=== PATIENT | female | born 1965 | race Caucasian/White ===

== ENCOUNTER → 2016-12-08 | Outpatient (CLI) | payer MEDICARE, OTHER ==
[~2016-12-08] MED LIST: CIPR200V4 IV; CLON1TAB PO; CYAN10002 IJ; ESTR0.5T3 PO; FAMO20TA5 PO; FLUC100T4 PO; FLUD0.1T PO; FLUO10CA13 PO; HYDR20TA PO; HYDR50TA PO; IRON1TAB2 PO; LEVALBUTER0.63 MG/3 IH; LEVO150T5 PO; MIRT15TA2 PO; MORP30TA PO; OXYC5CAP PO; PANT40TA3 PO; PHEN-318 PO; PRED15SO45 PO; PROP10TA PO; PROVENTIL HFA6.7 G1 IH; SUCR1TAB35 PO; TIZA4CAP3 PO; TRAM-48 PO
--- NOTE | 2016-12-08 09:58 | KCIC ---
EXAM: Lumbar spine MRI without contrast. HISTORY: Lumbar radiculopathy. TECHNIQUE: Multiplanar, multisequence magnetic resonance imaging of the lumbar spine was performed without contrast. COMPARISON: None. FINDINGS: There is lumbar dextroscoliosis centered at L2-L3. There is no significant listhesis. There is a right anterior superior endplate depression at L3 due to a large Schmorl's node. There is superimposed endplate remodeling with disc desiccation and decreased disc height at this level. The vertebral bodies are otherwise normal in height. There is diffusely heterogeneous marrow signal intensity. The conus terminates at L1. At L1-L2, there is no stenosis. At L2-L3, there is a disc bulge and endplate remodeling. There is no stenosis. At L3-L4, there is a disc bulge. There is no stenosis. At L4-L5, there is a disc bulge. There is minimal left facet arthropathy. There is no stenosis. At L5-S1, there is no stenosis. IMPRESSION: 1. Degenerative change within the lumbar spine, primarily at L2-L3. There is no associated significant foraminal or central canal stenosis. 2. Mild diffusely heterogeneous marrow signal intensity, likely due to heterogeneous fatty marrow replacement. Electronically signed by: Blessing eRyes MD (12/08/2016 9:55 AM) [facility]
== END | disposition home or self-care (01) ==
LOC: KCIC MRI 08:30
PROVIDERS: ATTEND Nurse Practitioner Family
DX: M51.16 Intervertebral disc disorders with radiculopathy, lumbar region (principal)
CPT/HCPCS: 72148

== ENCOUNTER 2019-01-21 11:30 | Inpatient (IN) | payer MEDICARE, OTHER ==
[~2019-01-21] VITALS: Ht 157.5 cm; Wt 43.2 kg
[~2019-01-21 11:30] MED LIST changes: +BENZ-8 PO; +BENZ1LOZ48 PO; +LEVO500T59 PO; -PANT40TA3 PO; +PANT40TA77 PO; +PRED15SO24 PO; -PRED15SO45 PO
[2019-01-21 17:00] VITALS: BP 138/78
[2019-01-21] MEDS ORDERED: IV NORMAL SALINE 1000ML BAG 1,000 ML IV ONE (18:15)
[2019-01-21] MEDS ORDERED: BENZOCAINE/MENTHOL LOZENGE. PO PRN (18:15)
[2019-01-21] MEDS ORDERED: MORPHINE IR 15 MG TABLET PO PRN (18:15)
[2019-01-21] MEDS ORDERED: SUCRALFATE 1 GM TABLET. PO PRN (18:15)
[2019-01-21] MEDS ORDERED: BENZONATATE 100 MG CAPSULE. PO PRN (18:15)
[2019-01-21] MEDS ORDERED: oxyCODONE/APAP 5/325 1 TAB TABLET PO PRN (18:15)
[2019-01-21 19:00] VITALS: BP 116/81
[2019-01-21] MEDS: hydrOXYzine 25 MG TABLET PO SCH ×2 (19:09→21:00)
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
[2019-01-21] MEDS: clonazePAM 0.5 MG TABLET PO SCH (21:00)
[2019-01-21] MEDS: FAMOTIDINE 20 MG TABLET. PO SCH (21:10)
[2019-01-21] MEDS: PHENAZOPYRIDINE 200 MG TABLET. PO SCH (21:11)
[2019-01-21] MEDS: MIRTAZAPINE 15 MG TABLET PO SCH (21:11)
[2019-01-21] MEDS: MORPHINE SULFATE 4 MG/ML VIAL. IV PRN (22:52)
[2019-01-21 23:00] VITALS: BP 122/70
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
[2019-01-22] VITALS (11 sets, daily range): BP systolic 96–126; BP diastolic 58–78
[2019-01-22] MEDS: MORPHINE SULFATE 4 MG/ML VIAL. IV PRN ×5 (02:26→22:11)
[2019-01-22] MEDS ORDERED: MORPHINE SULFATE 2 MG/ML VIAL. IV PRN ×2 (07:00→15:00)
[2019-01-22] MEDS ORDERED: PROCHLORPERAZINE 10 MG/2 ML VIAL. IV PRN ×2 (07:00→15:00)
[2019-01-22] MEDS ORDERED: LIDOCAINE 1% PF 2 ML VIAL. ID PRN ×2 (07:00→15:00)
[2019-01-22] MEDS ORDERED: HYDROmorphone 2 MG/ML VIAL IV PRN ×2 (07:00→15:00)
[2019-01-22] MEDS ORDERED: IV RINGERS,LACTATED 1000ML 1,000 ML IV SCH ×2 (07:00→14:54)
[2019-01-22] MEDS: LEVOTHYROXINE 150 MCG TABLET PO SCH (07:30)
[2019-01-22] MEDS: clonazePAM 0.5 MG TABLET PO SCH ×3 (09:00→22:10)
[2019-01-22] MEDS: hydrOXYzine 25 MG TABLET PO SCH ×3 (09:00→22:10)
[2019-01-22] MEDS: PROPRANOLOL 10 MG TABLET. PO SCH (09:00)
[2019-01-22] MEDS: PANTOPRAZOLE 40 MG TABLET.DR. PO SCH (09:00)
[2019-01-22] MEDS: PHENAZOPYRIDINE 200 MG TABLET. PO SCH ×3 (09:00→22:09)
[2019-01-22] MEDS: FLUoxetine HCL 10 MG CAPSULE PO SCH (09:00)
[2019-01-22] MEDS: FLUDROCORTISONE 0.1 MG TABLET PO SCH (09:00)
[2019-01-22] MEDS: HYDROCORTISONE SOD SUCC/PF 100 MG/2 ML VIAL. IV SCH ×3 (09:30→22:10)
--- NOTE | 2019-01-22 09:37 | PDOC ---
[facility] PROGRESS NOTE Chief Complaint Chief Complaint Right hip fracture History of Present Illness History of Present Illness 01/22/19 Pt seen and examined at bedside Pt was in distress complaining of hip pain and asking what time her surgery would be Pt has a RLQ ostomy bag D/w RN Vitals/I&O Vitals/I&O: Vital Signs Date Time Temp Pulse Resp B/P (MAP) Pulse Ox O2 Delivery O2 Flow Rate FiO2 01/22/19 09:30 Room Air 01/22/19 07:00 98.2 59 14 126/78 (94) 96 98.2 I & O 01/21/19 01/21/19 01/22/19 15:00 23:00 07:00 Output Total 610 ml Balance -610 ml Physical Exam General: Alert, Oriented X3, Cooperative, moderate distress Heart: Regular rate, Normal S1, Normal S2 Lungs: Clear Abdomen: Other (thin, ostomyu) Extremities: No cyanosis, Normal pulses Skin: No rashes, No significant lesion Review of Systems Review of Systems: Pt denies headache Pt denies chest pain Assessment and Plan Assessmemt and Plan Problems Medical Problems: (1) Madison disease Status: Chronic (2) Crohn disease Status: Chronic (3) Fracture of femoral neck, right Status: Acute Assessment Fracture of Right femoral neck Madison's disease Crohn disease Plan Awaiting surgery approval Morphine prn for pain IV hydrocortisone 100mg q8hrs DVT prophylaxis Full code Home meds Comment Review of Relevant I have reviewed the following items fausto (where applicable) has been applied. Medications: Current Medications Medications (Trade) Dose Ordered Sig/Rissa Route PRN Reason Start Time Stop Time Status Last Admin Dose Admin Morphine Sulfate (Morphine Ir) 15 mg PRN Q4HRS PRN PO PAIN 01/21/19 18:15 01/21/19 19:10 Sodium Chloride 1,000 ml @ 75 mls/hr 1X ONCE IV 01/21/19 18:15 01/22/19 07:34 DC 01/21/19 20:00 Famotidine (Pepcid) 20 mg HS PO 01/21/19 21:00 01/21/19 21:11 Phenazopyridine HCl (Pyridium) 200 mg TID PO 01/21/19 21:00 01/21/19 21:11 Hydroxyzine HCl (Atarax) 50 mg TID PO 01/21/19 18:30 01/21/19 19:10 Mirtazapine (Remeron) 15 mg QHS PO 01/21/19 21:00 01/21/19 21:11 Morphine Sulfate (Morphine Sulfate) 4 mg PRN Q2HR PRN IV PAIN 01/21/19 20:00 01/22/19 08:12 Hydrocortisone Sodium Succinate (Solu-CORTEF) 100 mg Q8HRS IV 01/22/19 08:30 01/22/19 09:30 MILA DUCKWORTH III DO Jan 22, 2019 09:36
[2019-01-22] MEDS ORDERED: PROPOFOL 20 ML IV ONE (11:34)
[2019-01-22] MEDS ORDERED: FAMOTIDINE 20 MG/2 ML VIAL ONE (11:34)
[2019-01-22] MEDS ORDERED: LIDOCAINE 2% PF 5 ML VIAL. ONE (11:34)
[2019-01-22] MEDS ORDERED: DEXAMETHASONE SOD PHOS 20 MG/5 ML VIAL. ONE (11:34)
[2019-01-22] MEDS ORDERED: ONDANSETRON PF 4 MG/2 ML VIAL. ONE (11:34)
[2019-01-22] MEDS ORDERED: fentaNYL PF VIAL 100 MCG/2 ML VIAL ONE ×2 (11:36→14:44)
[2019-01-22] MEDS ORDERED: MIDAZOLAM HCL/PF 2 MG/2 ML VIAL. ONE (11:36)
[2019-01-22] MEDS ORDERED: ROCURONIUM 50 MG/5 ML VIAL. ONE (11:36)
[2019-01-22] MEDS ORDERED: HYDROCORTISONE SOD SUCC/PF 100 MG/2 ML VIAL. ONE (11:38)
[2019-01-22] MEDS ORDERED: SEVOFLURANE > 120 MINUTES. IH ONE (12:59)
--- NOTE | 2019-01-22 13:13 | NUR ---
SS following for discharge planning. SS reviewed pt chart. Pt is from home and is currently on room air. No discharge needs noted at this time. SS will continue to follow for discharge planning.
[2019-01-22] MEDS ORDERED: ceFAZolin SODIUM 1 GM VIAL ONE (13:27)
[2019-01-22] MEDS ORDERED: 0.9 % SODIUM CHLORIDE 20 ML VIAL. IJ ONE (13:27)
[2019-01-22] MEDS ORDERED: ePHEDrine PF IN SALINE 50 MG/10 ML SYRINGE. IV ONE (13:51)
[2019-01-22] MEDS ORDERED: NEOSTIGMINE METHYLSULFATE 5 MG/5 ML SYRINGE. ONE (13:52)
[2019-01-22] MEDS ORDERED: GLYCOPYRROLATE 1 MG/5 ML VIAL. ONE (13:52)
[2019-01-22] MEDS ORDERED: IV DEXTROSE 5% 250 ML BAG. IV PRN (14:30)
[2019-01-22] MEDS ORDERED: fentaNYL PF VIAL 100 MCG/2 ML VIAL IV PRN ×2 (14:30→15:00)
[2019-01-22] MEDS ORDERED: DEXTROSE 50% 25 GM / 50ML DISP.SYRIN. IV PRN (14:30)
[2019-01-22] MEDS: fentaNYL PF VIAL 100 MCG/2 ML VIAL IV PRN ×2 (14:30→15:00)
[2019-01-22] MEDS ORDERED: MORPHINE SULFATE 4 MG/ML VIAL. IV PRN (14:30)
[2019-01-22] MEDS ORDERED: POLYETHYLENE GLYCOL 3350 17 GM PACKET. PO PRN (14:30)
[2019-01-22] MEDS ORDERED: ONDANSETRON PF 4 MG/2 ML VIAL. IV PRN ×2 (14:30→15:00)
[2019-01-22] MEDS ORDERED: HYDROcodone/APAP 7.5/325MG 1 TAB TABLET PO PRN (14:30)
[2019-01-22 15:42] LABS: PROTHROMBIN TIME PATIENT 12.7 SEC (11.7-14.0)
[2019-01-22] MEDS ORDERED: WARFARIN 5 MG TABLET. PO ONE (16:00)
--- NOTE | 2019-01-22 17:19 | PDOC4 ---
Operative Note Operative Note Date of surgery: 01/22/2019 Preoperative diagnosis: Displaced right femoral neck fracture Postoperative diagnosis: Same Operative procedure: Right hip hemiarthroplasty Surgeon: Tyrese Assist: Arian Echeverria Anesthesia: Gen. Estimated blood loss: 125 mL Complications: None Specimens: Femoral head to pathology Operative indications: Please see my dictated orthopedic consultation for detailed operative indications Operative text: Patient was identified procedure verified patient placed in the supine position on the operating table. After adequate amounts of general anesthesia were administered she was placed decubitus position right side up using the Stulberg hip positioner. The right hip was then prepped and draped in standard sterile fashion. After timeout was performed patient procedure identified and verified a standard posterior approach was carried out to the right hip with a curvilinear incision centered over the greater trochanter moriah otibial band and gluteal fascia were split in line with their fibers Charnley retractor was placed external rotators were divided from their insertion hip capsule was split in a T fashion femoral head was removed and sized at a size 45 femoral neck cut was made with the cutting guide and reaming and broaching carried out up to a size 10 broach which was trial fit with a +0 45 mm outside diameter trial which reproduced leg lengths and offset and noted excellent stability full range of motion. Trial components removed thorough irrigation carried out normal saline solution and a size 10 standard offset synergy porous femoral component was impacted into place in proper version and a bipolar construct was assembled with a +0 28 mm cobalt chromium femoral head and a 45 mm outside diameter cobalt chromium liner which was reduced and again showed excellent stability and leg length offset compared to the trial construct. Hip capsule was repaired with #5 Ethibond suture and transosseous repair of the external rotators was carried out with #5 Ethibond. Fascia closure was likewise carried out with Ethibond suture and reinforced with #1 PDS strata fix subcutaneous closure with buried Vicryl suture and subcuticular 3-0 Monocryl strata fix suture jenna dressing with Acticoat was placed patient was returned recovery room in stable condition having tolerated procedure well. VIJI MONTGOMERY MD Jan 22, 2019 17:19
[2019-01-22] MEDS: FAMOTIDINE 20 MG TABLET. PO SCH (22:09)
[2019-01-22] MEDS: MIRTAZAPINE 15 MG TABLET PO SCH (22:10)
[2019-01-22] MEDS: ceFAZolin SODIUM IV Push 1 GM VIAL. IVP SCH (22:26)
[2019-01-23 03:00] VITALS: BP 117/61
[2019-01-23] MEDS: MORPHINE SULFATE 2 MG/ML VIAL. IV PRN ×5 (03:51→19:30)
[2019-01-23] MEDS: ceFAZolin SODIUM IV Push 1 GM VIAL. IVP SCH ×2 (03:52→08:22)
[2019-01-23 04:58] LABS: HEMATOCRIT 22.7 % (36.0-47.0); HEMOGLOBIN 7.7 g/dL (12.0-15.5)
[2019-01-23] MEDS ORDERED: MAGNESIUM HYDROXIDE 2,400 MG/30 ML ORAL.SUSP. PO PRN (06:00)
[2019-01-23] MEDS: tiZANidine 4 MG TABLET. PO PRN (06:04)
[2019-01-23] MEDS: HYDROCORTISONE SOD SUCC/PF 100 MG/2 ML VIAL. IV SCH ×3 (06:04→22:00)
[2019-01-23] MEDS: LEVOTHYROXINE 150 MCG TABLET PO SCH (06:04)
[2019-01-23 07:15] VITALS: BP 126/69
--- NOTE | 2019-01-23 08:03 | PDOC ---
ORTHO PROGRESS NOTES Subjective Patient painful this morning but otherwise dong well. Post-op Day: 1 Procedure Right Hip Hemiarthroplasty Vitals Vital Signs Date Time Temp Pulse Resp B/P (MAP) Pulse Ox O2 Delivery O2 Flow Rate FiO2 01/23/19 07:15 98.3 62 16 126/69 (88) 96 Room Air 98.3 01/23/19 03:00 10.0 Labs Laboratory Tests Test 01/21/19 20:00 01/22/19 15:27 01/23/19 03:35 Nasal Screen MRSA (PCR) Negative (Negative) Prothrombin Time 12.7 SEC (11.7-14.0) Prothromb Time International Ratio 1.0 (0.8-1.1) Hemoglobin 7.7 g/dL (12.0-15.5) Hematocrit 22.7 % (36.0-47.0) Mean Corpuscular Hemoglobin Concent 34 g/dL (31-37) Laboratory Tests Test 01/22/19 15:27 01/23/19 03:35 Prothrombin Time 12.7 SEC (11.7-14.0) Prothromb Time International Ratio 1.0 (0.8-1.1) Hemoglobin 7.7 g/dL (12.0-15.5) Hematocrit 22.7 % (36.0-47.0) Mean Corpuscular Hemoglobin Concent 34 g/dL (31-37) Notes awake and alert Assessment and Plan POD # 1 R Hip Hemiarthroplasty motor and sensation intact distally calf soft and nontender moving foot,ankle and knee without restriction PT today KATHIE SHELTON APRN Jan 23, 2019 08:03
[2019-01-23] MEDS ORDERED: ZOLPIDEM 5 MG TABLET. PO PRN (09:00)
[2019-01-23 09:22] LABS: CALCIUM 8.7 mg/dL (8.5-10.1); CREATININE 1.2 mg/dL (0.6-1.0); GFR 46.6; POTASSIUM 4.9 mmol/L (3.5-5.1)
[2019-01-23] MEDS: PHENAZOPYRIDINE 200 MG TABLET. PO SCH ×3 (10:00→21:59)
[2019-01-23] MEDS: SENNOSIDES/DOCUSATE 8.6/50MG TABLET. PO SCH (10:00)
[2019-01-23] MEDS: hydrOXYzine 25 MG TABLET PO SCH ×3 (10:00→21:58)
[2019-01-23] MEDS: PANTOPRAZOLE 40 MG TABLET.DR. PO SCH (10:00)
[2019-01-23] MEDS: FLUoxetine HCL 10 MG CAPSULE PO SCH (10:00)
[2019-01-23] MEDS: FLUDROCORTISONE 0.1 MG TABLET PO SCH (10:01)
[2019-01-23] MEDS: PROPRANOLOL 10 MG TABLET. PO SCH (10:02)
[2019-01-23] MEDS: clonazePAM 0.5 MG TABLET PO SCH ×3 (10:03→21:58)
[2019-01-23 10:46] VITALS: BP 116/61
[2019-01-23 11:43] LABS: PROTHROMBIN TIME PATIENT 14.1 SEC (11.7-14.0)
--- NOTE | 2019-01-23 12:10 | PDOC ---
PROGRESS NOTES Chief Complaint Chief Complaint Right hip fracture s/p sx (01/22) POD # 1 History of Present Illness History of Present Illness Dr Howell is examining her She is up in chair NO RN issues PLAn: Check vit D and BMP post op I think this was a scheduled OR? PT OT SW for dc plans pending PT eval Vitals Vitals Vital Signs Date Time Temp Pulse Resp B/P (MAP) Pulse Ox O2 Delivery O2 Flow Rate FiO2 01/23/19 10:46 98.1 61 18 116/61 (79) 100 Room Air 98.1 01/23/19 09:24 10.0 Physical Exam General: Alert, Oriented X3, Cooperative, moderate distress Heart: Regular rate, Normal S1, Normal S2 Lungs: Clear Abdomen: Other (thin, ostomyu) Extremities: No cyanosis, Normal pulses Skin: No rashes, No significant lesion Labs LABS Laboratory Tests Test 01/22/19 15:27 01/23/19 03:35 01/23/19 11:01 Prothrombin Time 12.7 SEC (11.7-14.0) 14.1 SEC (11.7-14.0) Prothromb Time International Ratio 1.0 (0.8-1.1) 1.1 (0.8-1.1) Hemoglobin 7.7 g/dL (12.0-15.5) Hematocrit 22.7 % (36.0-47.0) Mean Corpuscular Hemoglobin Concent 34 g/dL (31-37) Sodium Level 139 mmol/L (136-145) Potassium Level 4.9 mmol/L (3.5-5.1) Chloride Level 105 mmol/L (98-107) Carbon Dioxide Level 28 mmol/L (21-32) Anion Gap 6 (6-14) Blood Urea Nitrogen 16 mg/dL (7-20) Creatinine 1.2 mg/dL (0.6-1.0) Estimated GFR (Cockcroft-Gault) 46.6 Glucose Level 151 mg/dL (70-99) Calcium Level 8.7 mg/dL (8.5-10.1) 25-Hydroxy Vitamin D Total 42.0 ng/mL (30-100) Review of Systems Review of Systems post op pain , all else 14 pt negative Assessment and Plan Assessmemt and Plan Problems Medical Problems: (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 Labs Laboratory Tests Test 01/21/19 20:00 01/22/19 15:27 01/23/19 03:35 01/23/19 11:01 Nasal Screen MRSA (PCR) Negative (Negative) Prothrombin Time 12.7 SEC (11.7-14.0) 14.1 SEC (11.7-14.0) Prothromb Time International Ratio 1.0 (0.8-1.1) 1.1 (0.8-1.1) Hemoglobin 7.7 g/dL (12.0-15.5) Hematocrit 22.7 % (36.0-47.0) Mean Corpuscular Hemoglobin Concent 34 g/dL (31-37) Sodium Level 139 mmol/L (136-145) Potassium Level 4.9 mmol/L (3.5-5.1) Chloride Level 105 mmol/L (98-107) Carbon Dioxide Level 28 mmol/L (21-32) Anion Gap 6 (6-14) Blood Urea Nitrogen 16 mg/dL (7-20) Creatinine 1.2 mg/dL (0.6-1.0) Estimated GFR (Cockcroft-Gault) 46.6 Glucose Level 151 mg/dL (70-99) Calcium Level 8.7 mg/dL (8.5-10.1) 25-Hydroxy Vitamin D Total 42.0 ng/mL (30-100) Laboratory Tests Test 01/22/19 15:27 01/23/19 03:35 01/23/19 11:01 Prothrombin Time 12.7 SEC (11.7-14.0) 14.1 SEC (11.7-14.0) Prothromb Time International Ratio 1.0 (0.8-1.1) 1.1 (0.8-1.1) Hemoglobin 7.7 g/dL (12.0-15.5) Hematocrit 22.7 % (36.0-47.0) Mean Corpuscular Hemoglobin Concent 34 g/dL (31-37) Sodium Level 139 mmol/L (136-145) Potassium Level 4.9 mmol/L (3.5-5.1) Chloride Level 105 mmol/L (98-107) Carbon Dioxide Level 28 mmol/L (21-32) Anion Gap 6 (6-14) Blood Urea Nitrogen 16 mg/dL (7-20) Creatinine 1.2 mg/dL (0.6-1.0) Estimated GFR (Cockcroft-Gault) 46.6 Glucose Level 151 mg/dL (70-99) Calcium Level 8.7 mg/dL (8.5-10.1) 25-Hydroxy Vitamin D Total 42.0 ng/mL (30-100) Medications Current Medications Morphine Sulfate (Morphine Sulfate) 1 mg PRN Q10MIN PRN IV SEVERE PAIN 7-10; Start 01/22/19 at 07:00; Stop 01/23/19 at 06:59; Status DC Ringer's Solution 1,000 ml @ 30 mls/hr Q24H IV ; Start 01/22/19 at 07:00; Stop 01/22/19 at 18:59; Status DC Lidocaine HCl (Xylocaine-Mpf 1% 2ml Vial) 2 ml PRN 1X PRN ID PRIOR TO IV START; Start 01/22/19 at 07:00; Stop 01/23/19 at 06:59; Status DC Hydromorphone HCl (Dilaudid) 0.5 mg PRN Q10MIN PRN IV SEV PAIN, Second choice; Start 01/22/19 at 07:00; Stop 01/23/19 at 06:59; Status DC Prochlorperazine Edisylate (Compazine) 5 mg PACU PRN PRN IV NAUSEA, MRX1; Start 01/22/19 at 07:00; Stop 01/23/19 at 06:59; Status DC Oxycodone/ Acetaminophen (Percocet 5/325) 1 tab PRN Q4HRS PRN PO PAIN; Start 01/21/19 at 18:15; Stop 01/22/19 at 17:54; Status DC Morphine Sulfate (Morphine Ir) 15 mg PRN Q4HRS PRN PO SEVERE PAIN Last administered on 01/21/19at 19:10; Start 01/21/19 at 18:15 Sodium Chloride 1,000 ml @ 75 mls/hr 1X ONCE IV Last administered on 01/21/19at 20:00; Start 01/21/19 at 18:15; Stop 01/22/19 at 07:34; Status DC Throat Lozenges (Cepacol Sore Throat Lozenge) 1 isai PRN Q2HRS PRN PO SORE THROAT; Start 01/21/19 at 18:15 Benzonatate (Tessalon Perle) 100 mg PRN TID PRN PO COUGH; Start 01/21/19 at 18:15 Famotidine (Pepcid) 20 mg HS PO Last administered on 01/22/19 22:26; Start 01/21/19 at 21:00 Fludrocortisone Acetate (Florinef) 0.1 mg DAILY PO Last administered on 01/23/19 10:03; Start 01/22/19 at 09:00 Fluoxetine HCl (PROzac) 10 mg DAILY PO Last administered on 01/23/19 10:03; Start 01/22/19 at 09:00 Levothyroxine Sodium (Synthroid) 150 mcg DAILYAC PO Last administered on 01/23/19 06:08; Start 01/22/19 at 07:30 Pantoprazole Sodium (Protonix) 40 mg DAILY PO Last administered on 01/23/19 10:03; Start 01/22/19 at 09:00 Phenazopyridine HCl (Pyridium) 200 mg TID PO Last administered on 01/23/19 10:03; Start 01/21/19 at 21:00 Propranolol HCl (Inderal) 10 mg DAILY PO Last administered on 01/23/19 10:03; Start 01/22/19 at 09:00 Sucralfate (Carafate) 1 gm PRN Q8HRS PRN PO abdominal pain; Start 01/21/19 at 18:15 Clonazepam (KlonoPIN) 1 mg TID PO Last administered on 01/23/19 10:03; Start 01/21/19 at 21:00 Hydroxyzine HCl (Atarax) 50 mg TID PO Last administered on 01/23/19 10:03; Start 01/21/19 at 18:30 Mirtazapine (Remeron) 15 mg QHS PO Last administered on 01/22/19 22:26; Start 01/21/19 at 21:00 Tizanidine HCl (Zanaflex) 4 mg PRN Q8HRS PRN PO MUSCLE SPASMS Last administered on 9/25/19at 06:08; Start 01/21/19 at 18:30 Morphine Sulfate (Morphine Sulfate) 4 mg PRN Q2HR PRN IV PAIN Last administered on 01/22/19at 22:26; Start 01/21/19 at 20:00 Hydrocortisone Sodium Succinate (Solu-CORTEF) 100 mg Q8HRS IV Last administered on 01/23/19at 06:08; Start 01/22/19 at 08:30 Lidocaine HCl (Lidocaine Pf 2% Vial) 5 ml STK-MED ONCE .ROUTE ; Start 01/22/19 at 11:34; Stop 01/22/19 at 11:34; Status DC Propofol 20 ml @ As Directed STK-MED ONCE IV ; Start 01/22/19 at 11:34; Stop 01/22/19 at 11:34; Status DC Famotidine (Pepcid Vial) 20 mg STK-MED ONCE .ROUTE ; Start 01/22/19 at 11:34; Stop 01/22/19 at 11:34; Status DC Dexamethasone Sodium Phosphate (Decadron) 20 mg STK-MED ONCE .ROUTE ; Start 01/22/19 at 11:34; Stop 01/22/19 at 11:34; Status DC Ondansetron HCl (Zofran) 4 mg STK-MED ONCE .ROUTE ; Start 01/22/19 at 11:34; Stop 01/22/19 at 11:34; Status DC Fentanyl Citrate (Fentanyl 2ml Vial) 100 mcg STK-MED ONCE .ROUTE ; Start 01/22/19 at 11:36; Stop 01/22/19 at 11:37; Status DC Midazolam HCl (Versed) 2 mg STK-MED ONCE .ROUTE ; Start 01/22/19 at 11:36; Stop 01/22/19 at 11:37; Status DC Rocuronium [place] (Zemuron) 50 mg STK-MED ONCE .ROUTE ; Start 01/22/19 at 11:36; Stop 01/22/19 at 11:37; Status DC Hydrocortisone Sodium Succinate (Solu-CORTEF) 100 mg STK-MED ONCE .ROUTE ; Start 01/22/19 at 11:38; Stop 01/22/19 at 11:38; Status DC Sevoflurane (Ultane) 90 ml STK-MED ONCE IH ; Start 01/22/19 at 12:59; Stop 01/22/19 at 12:59; Status DC Cefazolin Sodium (Ancef) 1 gm STK-MED ONCE .ROUTE ; Start 01/22/19 at 13:27; Stop 01/22/19 at 13:27; Status DC Sodium Chloride (SODIUM CHLORIDE 20ml) 20 ml STK-MED ONCE IJ ; Start 01/22/19 at 13:27; Stop 01/22/19 at 13:27; Status DC Ephedrine Sulfate (ePHEDrine PF IN SALINE SYRINGE) 50 mg STK-MED ONCE IV ; Start 01/22/19 at 13:51; Stop 01/22/19 at 13:51; Status DC Glycopyrrolate (Robinul) 1 mg STK-MED ONCE .ROUTE ; Start 01/22/19 at 13:52; Stop 01/22/19 at 13:53; Status DC Neostigmine Methylsulfate (Neostigmine Methylsulfate) 5 mg STK-MED ONCE .ROUTE ; Start 01/22/19 at 13:52; Stop 01/22/19 at 13:53; Status DC Oxycodone HCl (Roxicodone) 5 mg PRN Q3HRS PRN PO PAIN MOD; Start 01/22/19 at 14:30 Morphine Sulfate (Morphine Sulfate) 2 mg PRN Q1HR PRN IV PAIN MILD 1ST CHOICE Last administered on 01/23/19at 07:55; Start 01/22/19 at 14:30 Fentanyl Citrate (Fentanyl 2ml Vial) 25 mcg PRN Q1HR PRN IV PAIN MILD 1ST CHOICE; Start 01/22/19 at 14:30 Senna/Docusate Sodium (Senna Plus) 1 tab DAILY PO Last administered on 01/23/19at 10:03; Start 01/23/19 at 09:00 Polyethylene Glycol (miraLAX PACKET) 17 gm PRN DAILY PRN PO CONSTIPATION; Start 01/22/19 at 14:30 Ondansetron HCl (Zofran) 4 mg PRN Q4HRS PRN IV NAUSEA/VOMITING; Start 01/22/19 at 14:30 Warfarin Sodium (Coumadin) 5 mg 1X ONCE PO Last administered on 01/22/19at 17:59; Start 01/22/19 at 16:00; Stop 01/22/19 at 16:01; Status DC Warfarin Sodium (Coumadin Per Pharmacy) 1 each PRN DAILY PRN MC SEE COMMENTS; Start 01/23/19 at 14:30 Magnesium Hydroxide (Milk Of Magnesia) 2,400 mg 1X PRN PRN PO CONSTIPATION; Start 01/23/19 at 06:00; Stop 01/24/19 at 05:59 Bisacodyl (Dulcolax Supp) 10 mg 1X PRN PRN [place] CONSTIPATION; Start 01/23/19 at 16:00; Stop 01/24/19 at 15:59 Acetaminophen/ Hydrocodone Bitart (Lortab 7.5/325) 1 tab PRN Q4HRS PRN PO PAIN; Start 01/22/19 at 14:30 Morphine Sulfate (Morphine Sulfate) 4 mg PRN Q2HR PRN IV PAIN MOD 1ST CHOICE; Start 01/22/19 at 14:30 Acetaminophen/ Hydrocodone Bitart (Lortab 7.5/325) 2 tab PRN Q4HRS PRN PO PAIN; Start 01/22/19 at 14:30 Dextrose (Dextrose 50%-Water Syringe) 12.5 gm PRN Q15MIN PRN IV SEE COMMENTS; Start 01/22/19 at 14:30 Dextrose 250 ml PRN Q15MIN PRN IV SEE COMMENTS; Start 01/22/19 at 14:30 Cefazolin Sodium (Ancef) 1 gm Q6H IVP Last administered on 01/23/19at 08:22; Start 01/22/19 at 19:30; Stop 01/23/19 at 07:31; Status DC Fentanyl Citrate (Fentanyl 2ml Vial) 100 mcg STK-MED ONCE .ROUTE ; Start 01/22/19 at 14:44; Stop 01/22/19 at 14:44; Status DC Ondansetron HCl (Zofran) 4 mg PRN Q6HRS PRN IV NAUSEA/VOMITING; Start 01/22/19 at 15:00; Stop 01/23/19 at 14:59 Fentanyl Citrate (Fentanyl 2ml Vial) 25 mcg PRN Q5MIN PRN IV MILD PAIN 1-3; Start 01/22/19 at 15:00; Stop 01/23/19 at 14:59 Fentanyl Citrate (Fentanyl 2ml Vial) 50 mcg PRN Q5MIN PRN IV MODERATE TO SEVERE PAIN Last administered on 01/22/19at 15:00; Start 01/22/19 at 15:00; Stop 01/23/19 at 14:59 Morphine Sulfate (Morphine Sulfate) 1 mg PRN Q10MIN PRN IV SEVERE PAIN 7-10; Start 01/22/19 at 15:00; Stop 01/23/19 at 14:59 Ringer's Solution 1,000 ml @ 30 mls/hr Q24H IV ; Start 01/22/19 at 14:54; Stop 01/23/19 at 02:53; Status DC Lidocaine HCl (Xylocaine-Mpf 1% 2ml Vial) 2 ml PRN 1X PRN ID PRIOR TO IV START; Start 01/22/19 at 15:00; Stop 01/23/19 at 14:59 Hydromorphone HCl (Dilaudid) 0.5 mg PRN Q10MIN PRN IV SEV PAIN, Second choice; Start 01/22/19 at 15:00; Stop 01/23/19 at 14:59 Prochlorperazine Edisylate (Compazine) 5 mg PACU PRN PRN IV NAUSEA, MRX1; Start 01/22/19 at 15:00; Stop 01/23/19 at 14:59 Zolpidem Tartrate (Ambien) 5 mg PRN QHS PRN PO INSOMNIA; Start 01/23/19 at 09:00 Active Scripts Active Benzonatate 100 Mg Capsule 100 Mg PO PRN TID PRN Cepacol Sore Throat Lozenge (Benzocaine/Menthol) 1 Each Lozenge 1 Isai PO PRN Q2HRS PRN Reported Ultram (Tramadol Hcl) 50 Mg Tablet 50 Mg PO Q6H PRN Zanaflex (Tizanidine Hcl) 4 Mg Capsule 4 Mg PO TID PRN Carafate (Sucralfate) 1 Gm Tablet 1 Gm PO Protonix (Pantoprazole Sodium) 40 Mg Tablet.dr 40 Mg PO DAILY Oxycodone Hcl 5 Mg Capsule Unknown Dose PO PRN Morphine Sulfate 30 Mg Tablet Unknown Dose PO Remeron (Mirtazapine) 15 Mg Tab.rapdis 15 Mg PO DAILY Levothyroxine Sodium 150 Mcg Tablet 150 Mcg PO DAILYAC Hydroxyzine Hcl 50 Mg Tablet 50 Mg PO TID Cortef (Hydrocortisone) 20 Mg Tablet 20 Mg PO Prozac (Fluoxetine Hcl) 10 Mg Capsule 10 Mg PO DAILY Fludrocortisone Acetate 0.1 Mg Tablet 0.1 Mg PO Ferralet 90 Dual-Iron Tablet (Iron, Carb & Gluc/Fa/B12/C/Dss) 1 Each Tablet Unknown Dose PO Cyanocobalamin Injection (Cyanocobalamin (Vitamin B-12)) 1,000 Mcg/1 Ml Vial 1,000 Mcg IJ Klonopin (Clonazepam) 1 Mg Tablet 1 Mg PO TID Vitals/I & O Vital Sign - Last 24 Hours 01/22/19 01/22/19 01/22/19 01/22/19 14:34 14:34 14:49 14:56 Temp 97.4 97.4 97.2 97.4 97.4 97.2 Pulse 69 77 86 Resp 15 15 15 B/P (MAP) 110/66 110/70 110/70 Pulse Ox 100 100 96 O2 Delivery Simple Mask Room Air Room Air Room Air O2 Flow Rate 10 01/22/19 01/22/19 01/22/19 01/22/19 14:56 15:00 15:39 15:54 Temp 97.9 97.9 Pulse 79 76 Resp 15 14 14 B/P (MAP) 110/58 (75) 100/64 (76) Pulse Ox 100 96 96 96 O2 Delivery Room Air Room Air Room Air Room Air O2 Flow Rate 10.0 10.0 01/22/19 01/22/19 01/22/19 01/22/19 16:09 16:24 16:39 16:54 Pulse 73 79 74 B/P (MAP) 112/64 (80) 109/69 (82) 115/67 (83) 96/62 (73) Pulse Ox 94 93 98 O2 Delivery Room Air Room Air Room Air 01/22/19 01/22/19 01/22/19 01/22/19 17:24 17:59 18:35 18:45 Pulse 73 76 B/P (MAP) 100/58 (72) 111/61 (78) Pulse Ox 97 95 O2 Delivery Room Air Room Air Room Air Room Air 01/22/19 01/22/19 01/22/19 01/23/19 20:00 22:26 23:00 01:16 Temp 98.6 98.6 Pulse 70 Resp 16 B/P (MAP) 98/70 (79) Pulse Ox 95 96 O2 Delivery Room Air Room Air Room Air Room Air O2 Flow Rate 10.0 01/23/19 01/23/19 01/23/19 01/23/19 03:00 03:52 04:22 07:15 Temp 98.4 98.3 98.4 98.3 Pulse 62 62 Resp 16 16 16 B/P (MAP) 117/61 (79) 126/69 (88) Pulse Ox 96 96 O2 Delivery Room Air Room Air Room Air Room Air O2 Flow Rate 10.0 01/23/19 01/23/19 01/23/19 01/23/19 07:55 08:00 09:24 10:03 Pulse 62 Resp 16 16 B/P (MAP) 126/69 Pulse Ox 96 O2 Delivery Room Air Room Air Room Air O2 Flow Rate 10.0 01/23/19 10:46 Temp 98.1 98.1 Pulse 61 Resp 18 B/P (MAP) 116/61 (79) Pulse Ox 100 O2 Delivery Room Air Intake and Output 01/22/19 01/22/19 01/23/19 15:00 23:00 07:00 Intake Total 400 ml Output Total 450 ml 200 ml 700 ml Balance -50 ml -200 ml -700 ml Nutrition Consultation Dietary Evaluation: Recommendations by RD: Increase Calorie Intake, Protein supplementation Comments: rec regular diet with ground meats, ensure tid Expected Outcomes/Goals: to meet > 75% est nutr needs Malnutrition Findings: Muscle Mass (Severe): Severe Depletion Body Fat Depletion (Non Severe: Mod to Severe Weight Status: Underweight BORIS AKHTAR MD Jan 23, 2019 12:09
[2019-01-23 15:00] VITALS: BP 133/48
[2019-01-23] MEDS ORDERED: BISACODYL 10 MG SUPP.RECT. PR PRN (16:00)
[2019-01-23] MEDS ORDERED: WARFARIN 5 MG TABLET. PO ONE (16:00)
[2019-01-23] MEDS: HYDROcodone/APAP 7.5/325MG 1 TAB TABLET PO PRN (16:49)
[2019-01-23 19:00] VITALS: BP 141/68
[2019-01-23] MEDS: FAMOTIDINE 20 MG TABLET. PO SCH (21:59)
[2019-01-23] MEDS: MIRTAZAPINE 15 MG TABLET PO SCH (21:59)
[2019-01-23] MEDS: oxyCODONE IR 5 MG TABLET PO PRN (21:59)
[2019-01-23 23:00] VITALS: BP 141/67
[2019-01-23] MEDS: MORPHINE SULFATE 4 MG/ML VIAL. IV PRN (23:37)
[2019-01-24 03:00] VITALS: BP 141/74
[2019-01-24] MEDS: MORPHINE SULFATE 4 MG/ML VIAL. IV PRN (03:32)
[2019-01-24] MEDS: oxyCODONE IR 5 MG TABLET PO PRN ×2 (06:04→20:41)
[2019-01-24] MEDS: LEVOTHYROXINE 150 MCG TABLET PO SCH (06:05)
[2019-01-24] MEDS: HYDROCORTISONE SOD SUCC/PF 100 MG/2 ML VIAL. IV SCH ×3 (06:05→22:35)
[2019-01-24 07:14] LABS: PROTHROMBIN TIME PATIENT 19.1 SEC (11.7-14.0)
[2019-01-24 07:15] VITALS: BP 152/54
[2019-01-24] MEDS: FLUDROCORTISONE 0.1 MG TABLET PO SCH (09:00)
--- NOTE | 2019-01-24 10:02 | NUR ---
Pharmacy Warfarin Dosing Note S:Pharmacy consulted to assist with anticoagulation therapy started 01/22/19 with target INR: 1.6 - 2.5 O:MIKE BONE is a 53 year old F with Hip Fracture LABS: Last INR: 1.6 Last HGB: 7.7 Last HCT: 22.7 Last PLT: Last dose of 5 mg given on 01/23/19 at 1600 Previous Regimen: Vitamin K given: N Drug Interaction Changes: Ongoing Drug Interactions: A:INR of 1.6 is within desired range. Target range for this patient is: 1.6 - 2.5 P: Warfarin dose: 3 mg Today at 1600 Bridge Therapy: Next INR due IN AM Pharmacy anticoagulation service will continue to follow. ZENAIDA TOMLINSON [facility], 01/24/19 [id number]
[2019-01-24 11:09] VITALS: BP 131/60
[2019-01-24] MEDS: MORPHINE SULFATE 2 MG/ML VIAL. IV PRN ×2 (12:02→15:47)
[2019-01-24] MEDS: clonazePAM 0.5 MG TABLET PO SCH ×3 (12:05→20:41)
[2019-01-24] MEDS: PHENAZOPYRIDINE 200 MG TABLET. PO SCH ×3 (12:06→20:41)
[2019-01-24] MEDS: PANTOPRAZOLE 40 MG TABLET.DR. PO SCH (12:06)
[2019-01-24] MEDS: PROPRANOLOL 10 MG TABLET. PO SCH (12:06)
[2019-01-24] MEDS: FLUoxetine HCL 10 MG CAPSULE PO SCH (12:06)
[2019-01-24] MEDS: SENNOSIDES/DOCUSATE 8.6/50MG TABLET. PO SCH (12:07)
[2019-01-24] MEDS: hydrOXYzine 25 MG TABLET PO SCH ×3 (12:07→20:41)
--- NOTE | 2019-01-24 12:31 | PDOC ---
PROGRESS NOTES Chief Complaint Chief Complaint Right hip fracture s/p sx (01/22) POD # 2 Ex smoker Trasinet hypoxic RF post anesthesia/sx UNderweight BMI 17 History of Present Illness History of Present Illness Vit D levels are normal She wants rehabilitation in [place] work on case Otherwise seems to be doing okay postop no O2, noted the 10 L needed post op, PACU She is on room air satting just great Plan: target DC to snu tomorrow Full code She does take oxygen when necessary at home-her M[facility]D. at [facility] can take care of this once she discharges back to home Vitals Vitals Vital Signs Date Time Temp Pulse Resp B/P (MAP) Pulse Ox O2 Delivery O2 Flow Rate FiO2 01/24/19 12:06 67 131/60 01/24/19 12:02 16 97 Room Air 01/24/19 11:09 98.1 98.1 01/23/19 16:15 10.0 Physical Exam General: Alert, Oriented X3, Cooperative, moderate distress Heart: Regular rate, Normal S1, Normal S2 Lungs: Clear Abdomen: Other (thin, ostomyu) Extremities: No cyanosis, Normal pulses Skin: No rashes, No significant lesion Labs LABS Laboratory Tests Test 01/24/19 06:00 Prothrombin Time 19.1 SEC (11.7-14.0) Prothromb Time International Ratio 1.6 (0.8-1.1) Review of Systems Review of Systems post op pain, the rest of ROS 14 point negative Assessment and Plan Assessmemt and Plan Problems Medical Problems: (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 Labs Laboratory Tests Test 01/22/19 15:27 01/23/19 03:35 01/23/19 11:01 01/24/19 06:00 Prothrombin Time 12.7 SEC (11.7-14.0) 14.1 SEC (11.7-14.0) 19.1 SEC (11.7-14.0) Prothromb Time International Ratio 1.0 (0.8-1.1) 1.1 (0.8-1.1) 1.6 (0.8-1.1) Hemoglobin 7.7 g/dL (12.0-15.5) Hematocrit 22.7 % (36.0-47.0) Mean Corpuscular Hemoglobin Concent 34 g/dL (31-37) Sodium Level 139 mmol/L (136-145) Potassium Level 4.9 mmol/L (3.5-5.1) Chloride Level 105 mmol/L (98-107) Carbon Dioxide Level 28 mmol/L (21-32) Anion Gap 6 (6-14) Blood Urea Nitrogen 16 mg/dL (7-20) Creatinine 1.2 mg/dL (0.6-1.0) Estimated GFR (Cockcroft-Gault) 46.6 Glucose Level 151 mg/dL (70-99) Calcium Level 8.7 mg/dL (8.5-10.1) 25-Hydroxy Vitamin D Total 42.0 ng/mL (30-100) Laboratory Tests Test 01/24/19 06:00 Prothrombin Time 19.1 SEC (11.7-14.0) Prothromb Time International Ratio 1.6 (0.8-1.1) Medications Current Medications Morphine Sulfate (Morphine Sulfate) 1 mg PRN Q10MIN PRN IV SEVERE PAIN 7-10; Start 01/22/19 at 07:00; Stop 01/23/19 at 06:59; Status DC Ringer's Solution 1,000 ml @ 30 mls/hr Q24H IV ; Start 01/22/19 at 07:00; Stop 01/22/19 at 18:59; Status DC Lidocaine HCl (Xylocaine-Mpf 1% 2ml Vial) 2 ml PRN 1X PRN ID PRIOR TO IV START; Start 01/22/19 at 07:00; Stop 01/23/19 at 06:59; Status DC Hydromorphone HCl (Dilaudid) 0.5 mg PRN Q10MIN PRN IV SEV PAIN, Second choice; Start 01/22/19 at 07:00; Stop 01/23/19 at 06:59; Status DC Prochlorperazine Edisylate (Compazine) 5 mg PACU PRN PRN IV NAUSEA, MRX1; Start 01/22/19 at 07:00; Stop 01/23/19 at 06:59; Status DC Oxycodone/ Acetaminophen (Percocet 5/325) 1 tab PRN Q4HRS PRN PO PAIN; Start 01/21/19 at 18:15; Stop 01/22/19 at 17:54; Status DC Morphine Sulfate (Morphine Ir) 15 mg PRN Q4HRS PRN PO SEVERE PAIN Last administered on 01/21/19at 19:10; Start 01/21/19 at 18:15 Sodium Chloride 1,000 ml @ 75 mls/hr 1X ONCE IV Last administered on 01/21/19at 20:00; Start 01/21/19 at 18:15; Stop 01/22/19 at 07:34; Status DC Throat Lozenges (Cepacol Sore Throat Lozenge) 1 isai PRN Q2HRS PRN PO SORE THROAT; Start 01/21/19 at 18:15 Benzonatate (Tessalon Perle) 100 mg PRN TID PRN PO COUGH; Start 01/21/19 at 18:15 Famotidine (Pepcid) 20 mg HS PO Last administered on 01/23/19at 21:59; Start 01/21/19 at 21:00 Fludrocortisone Acetate (Florinef) 0.1 mg DAILY PO Last administered on 01/23/19 10:03; Start 01/22/19 at 09:00 Fluoxetine HCl (PROzac) 10 mg DAILY PO Last administered on 01/24/19 12:06; Start 01/22/19 at 09:00 Levothyroxine Sodium (Synthroid) 150 mcg DAILYAC PO Last administered on 01/24/19 06:05; Start 01/22/19 at 07:30 Pantoprazole Sodium (Protonix) 40 mg DAILY PO Last administered on 01/24/19 12:06; Start 01/22/19 at 09:00 Phenazopyridine HCl (Pyridium) 200 mg TID PO Last administered on 01/24/19 12:06; Start 01/21/19 at 21:00 Propranolol HCl (Inderal) 10 mg DAILY PO Last administered on 01/24/19 12:06; Start 01/22/19 at 09:00 Sucralfate (Carafate) 1 gm PRN Q8HRS PRN PO abdominal pain; Start 01/21/19 at 18:15 Clonazepam (KlonoPIN) 1 mg TID PO Last administered on 9/26/19at 12:05; Start 01/21/19 at 21:00 Hydroxyzine HCl (Atarax) 50 mg TID PO Last administered on 01/24/19at 12:07; Start 01/21/19 at 18:30 Mirtazapine (Remeron) 15 mg QHS PO Last administered on 01/23/19at 21:59; Start 01/21/19 at 21:00 Tizanidine HCl (Zanaflex) 4 mg PRN Q8HRS PRN PO MUSCLE SPASMS Last administered on 01/23/19at 06:08; Start 01/21/19 at 18:30 Morphine Sulfate (Morphine Sulfate) 4 mg PRN Q2HR PRN IV PAIN Last administered on 01/24/19at 03:32; Start 01/21/19 at 20:00 Hydrocortisone Sodium Succinate (Solu-CORTEF) 100 mg Q8HRS IV Last administered on 01/24/19at 06:05; Start 01/22/19 at 08:30 Lidocaine HCl (Lidocaine Pf 2% Vial) 5 ml STK-MED ONCE .ROUTE ; Start 01/22/19 at 11:34; Stop 01/22/19 at 11:34; Status DC Propofol 20 ml @ As Directed STK-MED ONCE IV ; Start 01/22/19 at 11:34; Stop 01/22/19 at 11:34; Status DC Famotidine (Pepcid Vial) 20 mg STK-MED ONCE .ROUTE ; Start 01/22/19 at 11:34; Stop 01/22/19 at 11:34; Status DC Dexamethasone Sodium Phosphate (Decadron) 20 mg STK-MED ONCE .ROUTE ; Start 01/22/19 at 11:34; Stop 01/22/19 at 11:34; Status DC Ondansetron HCl (Zofran) 4 mg STK-MED ONCE .ROUTE ; Start 01/22/19 at 11:34; Stop 01/22/19 at 11:34; Status DC Fentanyl Citrate (Fentanyl 2ml Vial) 100 mcg STK-MED ONCE .ROUTE ; Start 01/22/19 at 11:36; Stop 01/22/19 at 11:37; Status DC Midazolam HCl (Versed) 2 mg STK-MED ONCE .ROUTE ; Start 01/22/19 at 11:36; Stop 01/22/19 at 11:37; Status DC Rocuronium Gaston (Zemuron) 50 mg STK-MED ONCE .ROUTE ; Start 01/22/19 at 11:36; Stop 01/22/19 at 11:37; Status DC Hydrocortisone Sodium Succinate (Solu-CORTEF) 100 mg STK-MED ONCE .ROUTE ; Start 01/22/19 at 11:38; Stop 01/22/19 at 11:38; Status DC Sevoflurane (Ultane) 90 ml STK-MED ONCE IH ; Start 01/22/19 at 12:59; Stop 01/22/19 at 12:59; Status DC Cefazolin Sodium (Ancef) 1 gm STK-MED ONCE .ROUTE ; Start 01/22/19 at 13:27; Stop 01/22/19 at 13:27; Status DC Sodium Chloride (SODIUM CHLORIDE 20ml) 20 ml STK-MED ONCE IJ ; Start 01/22/19 at 13:27; Stop 01/22/19 at 13:27; Status DC Ephedrine Sulfate (ePHEDrine PF IN SALINE SYRINGE) 50 mg STK-MED ONCE IV ; Start 01/22/19 at 13:51; Stop 01/22/19 at 13:51; Status DC Glycopyrrolate (Robinul) 1 mg STK-MED ONCE .ROUTE ; Start 01/22/19 at 13:52; Stop 01/22/19 at 13:53; Status DC Neostigmine Methylsulfate (Neostigmine Methylsulfate) 5 mg STK-MED ONCE .ROUTE ; Start 01/22/19 at 13:52; Stop 01/22/19 at 13:53; Status DC Oxycodone HCl (Roxicodone) 5 mg PRN Q3HRS PRN PO PAIN MOD Last administered on 01/24/19at 06:04; Start 01/22/19 at 14:30 Morphine Sulfate (Morphine Sulfate) 2 mg PRN Q1HR PRN IV PAIN MILD 1ST CHOICE Last administered on 01/24/19at 12:02; Start 01/22/19 at 14:30 Fentanyl Citrate (Fentanyl 2ml Vial) 25 mcg PRN Q1HR PRN IV PAIN MILD 1ST CHOICE; Start 01/22/19 at 14:30 Senna/Docusate Sodium (Senna Plus) 1 tab DAILY PO Last administered on 01/24/19at 12:07; Start 01/23/19 at 09:00 Polyethylene Glycol (miraLAX PACKET) 17 gm PRN DAILY PRN PO CONSTIPATION; Start 01/22/19 at 14:30 Ondansetron HCl (Zofran) 4 mg PRN Q4HRS PRN IV NAUSEA/VOMITING; Start 01/22/19 at 14:30 Warfarin Sodium (Coumadin) 5 mg 1X ONCE PO Last administered on 01/22/19at 17:59; Start 01/22/19 at 16:00; Stop 01/22/19 at 16:01; Status DC Warfarin Sodium (Coumadin Per Pharmacy) 1 each PRN DAILY PRN MC SEE COMMENTS Last administered on 01/24/19at 09:45; Start 01/23/19 at 14:30 Magnesium Hydroxide (Milk Of Magnesia) 2,400 mg 1X PRN PRN PO CONSTIPATION; Start 01/23/19 at 06:00; Stop 01/24/19 at 05:59; Status DC Bisacodyl (Dulcolax Supp) 10 mg 1X PRN PRN NE CONSTIPATION; Start 01/23/19 at 16:00; Stop 01/24/19 at 15:59 Acetaminophen/ Hydrocodone Bitart (Lortab 7.5/325) 1 tab PRN Q4HRS PRN PO PAIN; Start 01/22/19 at 14:30 Morphine Sulfate (Morphine Sulfate) 4 mg PRN Q2HR PRN IV PAIN MOD 1ST CHOICE; Start 01/22/19 at 14:30 Acetaminophen/ Hydrocodone Bitart (Lortab 7.5/325) 2 tab PRN Q4HRS PRN PO PAIN Last administered on 01/23/19at 16:49; Start 01/22/19 at 14:30 Dextrose (Dextrose 50%-Water Syringe) 12.5 gm PRN Q15MIN PRN IV SEE COMMENTS; Start 01/22/19 at 14:30 Dextrose 250 ml PRN Q15MIN PRN IV SEE COMMENTS; Start 01/22/19 at 14:30 Cefazolin Sodium (Ancef) 1 gm Q6H IVP Last administered on 01/23/19at 08:22; Start 01/22/19 at 19:30; Stop 01/23/19 at 07:31; Status DC Fentanyl Citrate (Fentanyl 2ml Vial) 100 mcg STK-MED ONCE .ROUTE ; Start 01/22/19 at 14:44; Stop 01/22/19 at 14:44; Status DC Ondansetron HCl (Zofran) 4 mg PRN Q6HRS PRN IV NAUSEA/VOMITING; Start 01/22/19 at 15:00; Stop 01/23/19 at 14:59; Status DC Fentanyl Citrate (Fentanyl 2ml Vial) 25 mcg PRN Q5MIN PRN IV MILD PAIN 1-3; Start 01/22/19 at 15:00; Stop 01/23/19 at 14:59; Status DC Fentanyl Citrate (Fentanyl 2ml Vial) 50 mcg PRN Q5MIN PRN IV MODERATE TO SEVERE PAIN Last administered on 01/22/19at 15:00; Start 01/22/19 at 15:00; Stop 01/23/19 at 14:59; Status DC Morphine Sulfate (Morphine Sulfate) 1 mg PRN Q10MIN PRN IV SEVERE PAIN 7-10; Start 01/22/19 at 15:00; Stop 01/23/19 at 14:59; Status DC Ringer's Solution 1,000 ml @ 30 mls/hr Q24H IV ; Start 01/22/19 at 14:54; Stop 01/23/19 at 02:53; Status DC Lidocaine HCl (Xylocaine-Mpf 1% 2ml Vial) 2 ml PRN 1X PRN ID PRIOR TO IV START; Start 01/22/19 at 15:00; Stop 01/23/19 at 14:59; Status DC Hydromorphone HCl (Dilaudid) 0.5 mg PRN Q10MIN PRN IV SEV PAIN, Second choice; Start 01/22/19 at 15:00; Stop 01/23/19 at 14:59; Status DC Prochlorperazine Edisylate (Compazine) 5 mg PACU PRN PRN IV NAUSEA, MRX1; Start 01/22/19 at 15:00; Stop 01/23/19 at 14:59; Status DC Zolpidem Tartrate (Ambien) 5 mg PRN QHS PRN PO INSOMNIA; Start 01/23/19 at 09:00 Warfarin Sodium (Coumadin) 5 mg 1X WARF ONCE PO Last administered on 01/23/19at 15:46; Start 01/23/19 at 16:00; Stop 01/23/19 at 16:01; Status DC Warfarin Sodium (Coumadin) 3 mg 1X WARF ONCE PO ; Start 01/24/19 at 16:00; Stop 01/24/19 at 16:01 Active Scripts Active Benzonatate 100 Mg Capsule 100 Mg PO PRN TID PRN Cepacol Sore Throat Lozenge (Benzocaine/Menthol) 1 Each Lozenge 1 Isai PO PRN Q2HRS PRN Reported Ultram (Tramadol Hcl) 50 Mg Tablet 50 Mg PO Q6H PRN Zanaflex (Tizanidine Hcl) 4 Mg Capsule 4 Mg PO TID PRN Carafate (Sucralfate) 1 Gm Tablet 1 Gm PO Protonix (Pantoprazole Sodium) 40 Mg Tablet.dr 40 Mg PO DAILY Oxycodone Hcl 5 Mg Capsule Unknown Dose PO PRN Morphine Sulfate 30 Mg Tablet Unknown Dose PO Remeron (Mirtazapine) 15 Mg Tab.rapdis 15 Mg PO DAILY Levothyroxine Sodium 150 Mcg Tablet 150 Mcg PO DAILYAC Hydroxyzine Hcl 50 Mg Tablet 50 Mg PO TID Cortef (Hydrocortisone) 20 Mg Tablet 20 Mg PO Prozac (Fluoxetine Hcl) 10 Mg Capsule 10 Mg PO DAILY Fludrocortisone Acetate 0.1 Mg Tablet 0.1 Mg PO Ferralet 90 Dual-Iron Tablet (Iron, Carb & Gluc/Fa/B12/C/Dss) 1 Each Tablet Unknown Dose PO Cyanocobalamin Injection (Cyanocobalamin (Vitamin B-12)) 1,000 Mcg/1 Ml Vial 1,000 Mcg IJ Klonopin (Clonazepam) 1 Mg Tablet 1 Mg PO TID Vitals/I & O Vital Sign - Last 24 Hours 01/23/19 01/23/19 01/23/19 01/23/19 12:54 15:00 15:45 16:15 Temp 98.3 98.3 Pulse 59 Resp 16 20 16 18 B/P (MAP) 133/48 (76) Pulse Ox 97 100 100 100 O2 Delivery Room Air Room Air Room Air Room Air O2 Flow Rate 10.0 10.0 01/23/19 01/23/19 01/23/19 01/23/19 16:49 17:49 19:00 19:30 Temp 98.1 98.1 Pulse 57 Resp 16 20 18 16 B/P (MAP) 141/68 (92) Pulse Ox 98 92 O2 Delivery Room Air Room Air Room Air Room Air 01/23/19 01/23/19 01/23/19 01/23/19 20:00 20:32 21:59 22:59 Resp 16 18 18 O2 Delivery Room Air Room Air Room Air Room Air 01/23/19 01/23/19 01/24/19 01/24/19 23:00 23:37 00:07 03:00 Temp 98.1 98.0 98.1 98.0 Pulse 55 54 Resp 18 16 18 B/P (MAP) 141/67 (91) 141/74 (96) Pulse Ox 96 96 O2 Delivery Room Air Room Air Room Air Room Air 01/24/19 01/24/19 01/24/19 01/24/19 03:32 04:02 06:04 07:04 Resp 14 18 O2 Delivery Room Air Room Air Room Air Room Air 01/24/19 01/24/19 01/24/19 01/24/19 07:15 11:09 12:02 12:06 Temp 98.7 98.1 98.7 98.1 Pulse 56 67 67 Resp 18 16 16 B/P (MAP) 152/54 (86) 131/60 (83) 131/60 Pulse Ox 95 97 97 O2 Delivery Room Air Room Air Room Air Intake and Output 01/23/19 01/23/19 01/24/19 15:00 23:00 07:00 Intake Total 420 ml 180 ml 220 ml Output Total 550 ml 950 ml Balance 420 ml -370 ml -730 ml Nutrition Consultation Dietary Evaluation: Recommendations by RD: Increase Calorie Intake, Protein supplementation Comments: rec regular diet with ground meats, ensure tid Expected Outcomes/Goals: to meet > 75% est nutr needs Malnutrition Findings: Muscle Mass (Severe): Severe Depletion Body Fat Depletion (Non Severe: Mod to Severe Weight Status: Underweight BORIS AKHTAR MD Jan 24, 2019 12:31
[2019-01-24] MEDS ORDERED: TRAM-48 PO (12:33)
[2019-01-24] MEDS ORDERED: PROP10TA PO (12:33)
[2019-01-24] MEDS ORDERED: CLON1TAB PO (12:33)
[2019-01-24] MEDS ORDERED: HYDR-2765 PO (12:33)
[2019-01-24] MEDS ORDERED: WARF2TAB96 PO (12:33)
--- NOTE | 2019-01-24 12:34 | SNU/HH DC ---
DISCHARGE ORDERS DISCHARGE INFORMATION: DISCHARGE DATE: Jan 25, 2019 FINAL DIAGNOSIS Problems Medical Problems: (1) Wili disease Status: Chronic (2) Crohn disease Status: Chronic (3) Fracture of femoral neck, right Status: Acute CONDITION ON DISCHARGE: Stable CODE STATUS: Code Status: Full SENIOR CARE: SNF STAY <30 DAYS: Yes HOSPICE: HOSPICE: No HOSPICE EVAL & TREAT: No LTAC: ADMIT TO LTAC: No POST DISCHARGE ORDERS: ACTIVITY ORDERS: Resume previous activity WEIGHT BEARING STATUS: No restrictions DIET AFTER DISCHARGE: Regular WOUND/INCISION CARE: Keep wound elevated, Change dressing CHECKS AFTER DISCHARGE: CHECKS AFTER DISCHARGE: Check blood press - daily, Check blood sugar, ac/hs FOLLOW-UP: PHYSICIAN FOLLOW-UP: ortho upon snu dc TREATMENT/EQUIPMENT ORDERS: ADAPTIVE EQUIPMENT NEEDED: Front wheeled walker RESPIRATORY EQUIPMENT NEEDED: Oxygen Physical Therapy For: Evalulation/Treatment Occupational Therapy For: Evaluation/Treatment DISCHARGE MEDICATIONS: Home Meds Active Scripts Warfarin Sodium (WARFARIN SODIUM) 2 Mg Tablet, 2 MG PO DAILY for post hip sx, #30 TAB Prov:BORIS AKHTAR MD 01/24/19 Hydrocodone Bit/Acetaminophen (HYDROCODONE-APAP 7.5-325 ) 1 Tab Tablet, 1 TAB PO PRN Q4HRS PRN for PAIN, #30 TAB Prov:BORIS AKHTAR MD 01/24/19 Propranolol Hcl (PROPRANOLOL HCL) 10 Mg Tablet, 10 MG PO DAILY for ETs, #60 TAB Prov:BORIS AKHTAR MD 01/24/19 Tramadol Hcl (ULTRAM) 50 Mg Tablet, 50 MG PO Q6H PRN for PAIN, #30 TAB 0 Refills Prov:BORIS AKHTAR MD 01/24/19 Clonazepam (KLONOPIN) 1 Mg Tablet, 1 MG PO TID for anxiety, #30 TAB Prov:BORIS AKHTAR MD 01/24/19 Benzonatate (BENZONATATE) 100 Mg Capsule, 100 MG PO PRN TID PRN for COUGH, #30 CAP Prov:QUE LONG MD 01/03/17 Benzocaine/Menthol (CEPACOL SORE THROAT LOZENGE) 1 Each Lozenge, 1 AUGIE PO PRN Q2HRS PRN for SORE THROAT, #30 LOZENGE Prov:QUE LONG MD 01/03/17 Reported Medications Tizanidine Hcl (ZANAFLEX) 4 Mg Capsule, 4 MG PO TID PRN for MUSCLE SPASMS, CAP 12/14/15 Sucralfate (CARAFATE) 1 Gm Tablet, 1 GM PO 12/14/15 Pantoprazole Sodium (PROTONIX ) 40 Mg Tablet.dr, 40 MG PO DAILY, TAB 12/14/15 Mirtazapine (REMERON) 15 Mg Tab.rapdis, 15 MG PO DAILY, TAB 12/14/15 Levothyroxine Sodium (LEVOTHYROXINE SODIUM) 150 Mcg Tablet, 150 MCG PO DAILYAC for THYROID SUPPLEMENT, #30 TAB 0 Refills 12/14/15 Hydroxyzine Hcl (HYDROXYZINE HCL) 50 Mg Tablet, 50 MG PO TID, TAB 12/14/15 Hydrocortisone (CORTEF) 20 Mg Tablet, 20 MG PO 12/14/15 Fluoxetine Hcl (PROZAC) 10 Mg Capsule, 10 MG PO DAILY, CAP 12/14/15 Fludrocortisone Acetate (FLUDROCORTISONE ACETATE) 0.1 Mg Tablet, 0.1 MG PO 12/14/15 Iron, Carb & Gluc/Fa/B12/C/Dss (FERRALET 90 DUAL-IRON TABLET) 1 Each Tablet, PO 12/14/15 Cyanocobalamin (Vitamin B-12) (CYANOCOBALAMIN INJECTION) 1,000 Mcg/1 Ml Vial, 1000 MCG IJ, VIAL 12/14/15 Discontinued Reported Medications Oxycodone Hcl (OXYCODONE HCL) 5 Mg Capsule, PO PRN for PAIN, TAB 0 Refills 12/14/15 Morphine Sulfate (MORPHINE SULFATE) 30 Mg Tablet, PO 12/14/15 Propranolol Hcl (PROPRANOLOL HCL) 10 Mg Tablet, 10 MG PO DAILY, TAB 12/14/15 Fluconazole (FLUCONAZOLE) 100 Mg Tablet, 100 MG PO DAILY, TAB 12/14/15 Albuterol Sulfate (Proventil Hfa) 6.7 Gm Hfa.aer.ad, 6.7 GM IH 12/14/15 BORIS AKHTAR MD Jan 24, 2019 12:34
--- NOTE | 2019-01-24 13:57 | NUR ---
SS following up with discharge planning. PT/OT recommended [facility]. SS met with pt to discuss discharge planning and [facility]. Pt reported that she had discussed earlier with physicians and would like referral to be phoned and faxed to [facility], ; fax [phone]. SS phoned and faxed referral. SS will continue to follow for discharge planning.
[2019-01-24] MEDS: HYDROcodone/APAP 7.5/325MG 1 TAB TABLET PO PRN (15:05)
--- NOTE | 2019-01-24 15:07 | PATHOLOGY ---
[facility] Accession Number: [id number] . 01 Material submitted: . hip - RIGHT HIP BONE AND TISSUE. Modifiers: right . 01 Clinical history: . Hip fracture . 02 Diagnosis: Femoral head, right hip hemiarthroplasty: - Focal fragmentation of bony trabeculae and recent intertrabecular hemorrhage consistent with fracture. (JPM:medical claims examiner; 01/24/2019) MBR 01/24/2019 1417 Local . 02 Comment: There is no evidence of malignancy. (JPM:medical claims examiner; 01/24/2019) . 02 Electronically signed: . Vignesh Becerra MD, Pathologist NPI- [id number] . 01 Gross description: . Received in formalin labeled "Rosa Maria Love, right hip bone and tissue," is a femoral head measuring 4.6 x 4.6 x 3.5 cm in greatest dimensions. The articular surface is smooth and pale winchester in appearance, with a small amount of granular, light brown texture surrounding the fovea capitis. The bone margin is jagged and hemorrhagic in appearance, grossly consistent with a fracture site. Serial sectioning reveals a pale yellow-winchester to red/hemorrhagic marrow space, with extensive dark brown hemorrhage noted at the bone margin. Residential Designer sections of the articular surface and bone margin are submitted in cassette A1, following decalcification. (DAC; 01/23/2019) XDC/XDC 01/23/2019 0703 Local . 02 Pathologist provided ICD-10: S72.091A . 02 CPT . 630206, 751106 Specimen Comment: A courtesy copy of this report has been sent to Specimen Comment: [phone]. Specimen Comment: Report sent to Performed at: [address] [place] [address] [address]vd [address], [place], [place] [id number] MD Eric Lopez MD Phone: [phone] Performed at: [address] [id number] MD Vignesh Becerra MD Phone: [phone]
[2019-01-24 15:08] VITALS: BP 132/68
[2019-01-24] MEDS ORDERED: WARFARIN 3 MG TABLET. PO ONE (16:00)
[2019-01-24 19:00] VITALS: BP 125/64
--- NOTE | 2019-01-24 19:06 | PDOC ---
PROGRESS NOTES Subjective Subjective Problems overnight: Hip is sore but feels much better than before operation Objective Vital Signs Vital Signs Date Time Temp Pulse Resp B/P (MAP) Pulse Ox O2 Delivery O2 Flow Rate FiO2 01/24/19 16:05 20 96 Room Air 01/24/19 15:08 98.2 56 132/68 (89) 98.2 01/23/19 16:15 10.0 Physical Exam Hip dressing clean dry intact leg lengths equal distal neurovascular status intact Labs Laboratory Tests Test 01/23/19 03:35 01/23/19 11:01 01/24/19 06:00 Hemoglobin 7.7 g/dL (12.0-15.5) Hematocrit 22.7 % (36.0-47.0) Mean Corpuscular Hemoglobin Concent 34 g/dL (31-37) Sodium Level 139 mmol/L (136-145) Potassium Level 4.9 mmol/L (3.5-5.1) Chloride Level 105 mmol/L (98-107) Carbon Dioxide Level 28 mmol/L (21-32) Anion Gap 6 (6-14) Blood Urea Nitrogen 16 mg/dL (7-20) Creatinine 1.2 mg/dL (0.6-1.0) Estimated GFR (Cockcroft-Gault) 46.6 Glucose Level 151 mg/dL (70-99) Calcium Level 8.7 mg/dL (8.5-10.1) 25-Hydroxy Vitamin D Total 42.0 ng/mL (30-100) Prothrombin Time 14.1 SEC (11.7-14.0) 19.1 SEC (11.7-14.0) Prothromb Time International Ratio 1.1 (0.8-1.1) 1.6 (0.8-1.1) Laboratory Tests Test 01/24/19 06:00 Prothrombin Time 19.1 SEC (11.7-14.0) Prothromb Time International Ratio 1.6 (0.8-1.1) Assessment Assessment POD# status post bipolar hemiarthroplasty for femoral neck fracture Plan Plan of Care weightbearing as tolerated standard total hip precautions Coumadin anticoagulation Appears stable from orthopedic standpoint VIJI MONTGOMERY MD Jan 24, 2019 19:06
[2019-01-24] MEDS: MIRTAZAPINE 15 MG TABLET PO SCH (20:40)
[2019-01-24] MEDS: tiZANidine 4 MG TABLET. PO PRN (20:40)
[2019-01-24] MEDS: FAMOTIDINE 20 MG TABLET. PO SCH (20:40)
[2019-01-24 23:00] VITALS: BP 123/66
[2019-01-25 02:56] VITALS: BP 136/70
[2019-01-25] MEDS: HYDROCORTISONE SOD SUCC/PF 100 MG/2 ML VIAL. IV SCH ×3 (06:14→22:05)
[2019-01-25] MEDS: LEVOTHYROXINE 150 MCG TABLET PO SCH (06:15)
[2019-01-25] MEDS: oxyCODONE IR 5 MG TABLET PO PRN ×3 (06:15→20:16)
[2019-01-25 07:00] VITALS: BP 114/75
--- NOTE | 2019-01-25 07:02 | NUR ---
Patient upset, crying during shift report stating, "I hurt! I was moaning all night but I was too scared to ask for anything". This nurse assured patient that she was sleeping during rounds but patient continued crying and responded, "No I wasn't! I'm going to tell my doctor". This nurse and ELSA Tim checked on patient hourly and patient was resting quietly as previously documented. Oxycodone IR administered prior to shift change but patient denies effectiveness, report given to ELSA Winters at this time.
[2019-01-25] MEDS: HYDROcodone/APAP 7.5/325MG 1 TAB TABLET PO PRN ×2 (07:20→17:26)
--- NOTE | 2019-01-25 08:05 | NUR ---
Pt. screaming and crying re: pain meds not working. Pt.educated on pain pills needing time to work. Pt's family member called the nurses station, stating pt called her stating she has not received pain meds. Family member infomed pt received pt received med prior to shift change report and after shift change report and that RN has just returned to the nurses station to address pt's concern re: pain meds and those concerns are in the process of being addressed. Pt. extremely anxious, more education needed re: pain med regimine.
[2019-01-25 08:37] LABS: PROTHROMBIN TIME PATIENT 24.2 SEC (11.7-14.0)
[2019-01-25] MEDS: hydrOXYzine 25 MG TABLET PO SCH ×3 (08:37→20:16)
[2019-01-25] MEDS: PHENAZOPYRIDINE 200 MG TABLET. PO SCH ×3 (08:38→20:16)
[2019-01-25] MEDS: FLUoxetine HCL 10 MG CAPSULE PO SCH (08:38)
[2019-01-25] MEDS: clonazePAM 0.5 MG TABLET PO SCH ×3 (08:38→20:15)
[2019-01-25] MEDS: SENNOSIDES/DOCUSATE 8.6/50MG TABLET. PO SCH (08:38)
[2019-01-25] MEDS: PANTOPRAZOLE 40 MG TABLET.DR. PO SCH (08:38)
[2019-01-25] MEDS: FLUDROCORTISONE 0.1 MG TABLET PO SCH (08:38)
[2019-01-25] MEDS: PROPRANOLOL 10 MG TABLET. PO SCH (08:38)
[2019-01-25] MEDS: MORPHINE SULFATE 2 MG/ML VIAL. IV PRN ×2 (10:13→21:57)
--- NOTE | 2019-01-25 10:14 | NUR ---
Pt.given IV Morphine, states she wants it for the" top pain to be gone", states she has been begging since 7 o'clock for it yesterday. pt. educated on relaxation technique. will continue to monitor.
--- NOTE | 2019-01-25 10:52 | NUR ---
Pharmacy Warfarin Dosing Note S:Pharmacy consulted to assist with anticoagulation therapy started 01/22/19 with target INR: 1.6 - 2.5 O:MIKE BONE is a 53 year old F with Hip Fracture LABS: Last INR: 2.2 Last HGB: 7.9 Last HCT: 22.7 Last PLT: Last dose of 3 mg given on 01/24/19 at 1548 Previous Regimen: Vitamin K given: N Drug Interaction Changes: Ongoing Drug Interactions: A:INR of 2.2 is within desired range. Target range for this patient is: 1.6 - 2.5. P: Warfarin dose: 1 mg Today at 1600. Bridge Therapy: None Next INR due tomorrow. Pharmacy anticoagulation service will continue to follow. Ruben Ty [facility], 01/25/19 [id number]
[2019-01-25 11:00] VITALS: BP 149/70
--- NOTE | 2019-01-25 11:22 | NUR ---
SS following up with discharge planning. Pt accepted at [facility]. Discharge orders received for [facility], ; fax [phone]. Discharge orders phoned and faxed to [facility]. [facility] reported that bed will be available tomorrow. Pt will discharge tomorrow, 01/26/2019, and go to [facility] at 1000. [facility] to provide transportation. Pt, pt's family, and pt's RN notified.
--- NOTE | 2019-01-25 12:41 | PDOC ---
PROGRESS NOTES Chief Complaint Chief Complaint Right hip fracture s/p sx (01/22) POD # 3 Ex smoker Transient hypoxic RF post anesthesia/sx UNderweight BMI 17 History of Present Illness History of Present Illness Vit D levels are normal She wants rehabilitation in [place] NO bed today Social work on case Otherwise seems to be doing okay postop Slated for Dining Secretary tomr 10 AM EARLIER ENTRY: no O2, noted the 10 L needed post op, PACU She is on room air satting just great Plan: target DC to [facility] tomorrow Full code She does take oxygen when necessary at home-her M.D. at [facility] can take care of this once she discharges back to home Vitals Vitals Vital Signs Date Time Temp Pulse Resp B/P (MAP) Pulse Ox O2 Delivery O2 Flow Rate FiO2 01/25/19 11:00 97.9 18 18 149/70 (96) 95 Room Air 97.9 Physical Exam General: Alert, Oriented X3, Cooperative, moderate distress Heart: Regular rate, Normal S1, Normal S2 Lungs: Clear Abdomen: Other (thin, ostomyu) Extremities: No cyanosis, Normal pulses Skin: No rashes, No significant lesion Labs LABS Laboratory Tests Test 01/25/19 07:55 Hemoglobin 7.9 g/dL (12.0-15.5) Prothrombin Time 24.2 SEC (11.7-14.0) Prothromb Time International Ratio 2.2 (0.8-1.1) Review of Systems Review of Systems neg 14 pt Assessment and Plan Assessmemt and Plan Problems Medical Problems: (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 Labs Laboratory Tests Test 01/24/19 06:00 01/25/19 07:55 Prothrombin Time 19.1 SEC (11.7-14.0) 24.2 SEC (11.7-14.0) Prothromb Time International Ratio 1.6 (0.8-1.1) 2.2 (0.8-1.1) Hemoglobin 7.9 g/dL (12.0-15.5) Laboratory Tests Test 01/25/19 07:55 Hemoglobin 7.9 g/dL (12.0-15.5) Prothrombin Time 24.2 SEC (11.7-14.0) Prothromb Time International Ratio 2.2 (0.8-1.1) Medications Current Medications Morphine Sulfate (Morphine Sulfate) 1 mg PRN Q10MIN PRN IV SEVERE PAIN 7-10; Start 01/22/19 at 07:00; Stop 01/23/19 at 06:59; Status DC Ringer's Solution 1,000 ml @ 30 mls/hr Q24H IV ; Start 01/22/19 at 07:00; Stop 01/22/19 at 18:59; Status DC Lidocaine HCl (Xylocaine-Mpf 1% 2ml Vial) 2 ml PRN 1X PRN ID PRIOR TO IV START; Start 01/22/19 at 07:00; Stop 01/23/19 at 06:59; Status DC Hydromorphone HCl (Dilaudid) 0.5 mg PRN Q10MIN PRN IV SEV PAIN, Second choice; Start 01/22/19 at 07:00; Stop 01/23/19 at 06:59; Status DC Prochlorperazine Edisylate (Compazine) 5 mg PACU PRN PRN IV NAUSEA, MRX1; Start 01/22/19 at 07:00; Stop 01/23/19 at 06:59; Status DC Oxycodone/ Acetaminophen (Percocet 5/325) 1 tab PRN Q4HRS PRN PO PAIN; Start 01/21/19 at 18:15; Stop 01/22/19 at 17:54; Status DC Morphine Sulfate (Morphine Ir) 15 mg PRN Q4HRS PRN PO SEVERE PAIN Last administered on 01/21/19at 19:10; Start 01/21/19 at 18:15 Sodium Chloride 1,000 ml @ 75 mls/hr 1X ONCE IV Last administered on 01/21/19at 20:00; Start 01/21/19 at 18:15; Stop 01/22/19 at 07:34; Status DC Throat Lozenges (Cepacol Sore Throat Lozenge) 1 isai PRN Q2HRS PRN PO SORE THROAT; Start 01/21/19 at 18:15 Benzonatate (Tessalon Perle) 100 mg PRN TID PRN PO COUGH; Start 01/21/19 at 18:15 Famotidine (Pepcid) 20 mg HS PO Last administered on 01/24/19 20:40; Start 01/21/19 at 21:00 Fludrocortisone Acetate (Florinef) 0.1 mg DAILY PO Last administered on 01/25/19 08:38; Start 01/22/19 at 09:00 Fluoxetine HCl (PROzac) 10 mg DAILY PO Last administered on 01/25/19 08:38; Start 01/22/19 at 09:00 Levothyroxine Sodium (Synthroid) 150 mcg DAILYAC PO Last administered on 01/25/19 06:15; Start 01/22/19 at 07:30 Pantoprazole Sodium (Protonix) 40 mg DAILY PO Last administered on 01/25/19 08:38; Start 01/22/19 at 09:00 Phenazopyridine HCl (Pyridium) 200 mg TID PO Last administered on 01/25/19 08:38; Start 01/21/19 at 21:00 Propranolol HCl (Inderal) 10 mg DAILY PO Last administered on 01/25/19 08:38; Start 01/22/19 at 09:00 Sucralfate (Carafate) 1 gm PRN Q8HRS PRN PO abdominal pain; Start 01/21/19 at 18:15 Clonazepam (KlonoPIN) 1 mg TID PO Last administered on 01/25/19 08:38; Start 01/21/19 at 21:00 Hydroxyzine HCl (Atarax) 50 mg TID PO Last administered on 01/25/19 08:37; Start 01/21/19 at 18:30 Mirtazapine (Remeron) 15 mg QHS PO Last administered on 01/24/19 20:40; Start 01/21/19 at 21:00 Tizanidine HCl (Zanaflex) 4 mg PRN Q8HRS PRN PO MUSCLE SPASMS Last administered on 01/24/19 20:40; Start 01/21/19 at 18:30 Morphine Sulfate (Morphine Sulfate) 4 mg PRN Q2HR PRN IV PAIN Last administered on 01/24/19 03:32; Start 01/21/19 at 20:00; Stop 01/24/19 at 18:34; Status DC Hydrocortisone Sodium Succinate (Solu-CORTEF) 100 mg Q8HRS IV Last administered on 01/25/19at 06:14; Start 01/22/19 at 08:30 Lidocaine HCl (Lidocaine Pf 2% Vial) 5 ml STK-MED ONCE .ROUTE ; Start 01/22/19 at 11:34; Stop 01/22/19 at 11:34; Status DC Propofol 20 ml @ As Directed STK-MED ONCE IV ; Start 01/22/19 at 11:34; Stop 01/22/19 at 11:34; Status DC Famotidine (Pepcid Vial) 20 mg STK-MED ONCE .ROUTE ; Start 01/22/19 at 11:34; Stop 01/22/19 at 11:34; Status DC Dexamethasone Sodium Phosphate (Decadron) 20 mg STK-MED ONCE .ROUTE ; Start 01/22/19 at 11:34; Stop 01/22/19 at 11:34; Status DC Ondansetron HCl (Zofran) 4 mg STK-MED ONCE .ROUTE ; Start 01/22/19 at 11:34; Stop 01/22/19 at 11:34; Status DC Fentanyl Citrate (Fentanyl 2ml Vial) 100 mcg STK-MED ONCE .ROUTE ; Start 01/22/19 at 11:36; Stop 01/22/19 at 11:37; Status DC Midazolam HCl (Versed) 2 mg STK-MED ONCE .ROUTE ; Start 01/22/19 at 11:36; Stop 01/22/19 at 11:37; Status DC Rocuronium [place] (Zemuron) 50 mg STK-MED ONCE .ROUTE ; Start 01/22/19 at 11:36; Stop 01/22/19 at 11:37; Status DC Hydrocortisone Sodium Succinate (Solu-CORTEF) 100 mg STK-MED ONCE .ROUTE ; Start 01/22/19 at 11:38; Stop 01/22/19 at 11:38; Status DC Sevoflurane (Ultane) 90 ml STK-MED ONCE IH ; Start 01/22/19 at 12:59; Stop 01/22/19 at 12:59; Status DC Cefazolin Sodium (Ancef) 1 gm STK-MED ONCE .ROUTE ; Start 01/22/19 at 13:27; Stop 01/22/19 at 13:27; Status DC Sodium Chloride (SODIUM CHLORIDE 20ml) 20 ml STK-MED ONCE IJ ; Start 01/22/19 at 13:27; Stop 01/22/19 at 13:27; Status DC Ephedrine Sulfate (ePHEDrine PF IN SALINE SYRINGE) 50 mg STK-MED ONCE IV ; Start 01/22/19 at 13:51; Stop 01/22/19 at 13:51; Status DC Glycopyrrolate (Robinul) 1 mg STK-MED ONCE .ROUTE ; Start 01/22/19 at 13:52; Stop 01/22/19 at 13:53; Status DC Neostigmine Methylsulfate (Neostigmine Methylsulfate) 5 mg STK-MED ONCE .ROUTE ; Start 01/22/19 at 13:52; Stop 01/22/19 at 13:53; Status DC Oxycodone HCl (Roxicodone) 5 mg PRN Q3HRS PRN PO PAIN MOD Last administered on 01/25/19at 06:15; Start 01/22/19 at 14:30 Morphine Sulfate (Morphine Sulfate) 2 mg PRN Q1HR PRN IV PAIN MILD 1ST CHOICE Last administered on 01/25/19at 10:13; Start 01/22/19 at 14:30 Fentanyl Citrate (Fentanyl 2ml Vial) 25 mcg PRN Q1HR PRN IV PAIN MILD 1ST CHO ICE; Start 01/22/19 at 14:30 Senna/Docusate Sodium (Senna Plus) 1 tab DAILY PO Last administered on 01/25/19at 08:38; Start 01/23/19 at 09:00 Polyethylene Glycol (miraLAX PACKET) 17 gm PRN DAILY PRN PO CONSTIPATION; Start 01/22/19 at 14:30 Ondansetron HCl (Zofran) 4 mg PRN Q4HRS PRN IV NAUSEA/VOMITING; Start 01/22/19 at 14:30 Warfarin Sodium (Coumadin) 5 mg 1X ONCE PO Last administered on 01/22/19at 17:59; Start 01/22/19 at 16:00; Stop 01/22/19 at 16:01; Status DC Warfarin Sodium (Coumadin Per Pharmacy) 1 each PRN DAILY PRN MC SEE COMMENTS Last administered on 01/25/19at 10:51; Start 01/23/19 at 14:30 Magnesium Hydroxide (Milk Of Magnesia) 2,400 mg 1X PRN PRN PO CONSTIPATION; Start 01/23/19 at 06:00; Stop 01/24/19 at 05:59; Status DC Bisacodyl (Dulcolax Supp) 10 mg 1X PRN PRN [place] CONSTIPATION; Start 01/23/19 at 16:00; Stop 01/24/19 at 15:59; Status DC Acetaminophen/ Hydrocodone Bitart (Lortab 7.5/325) 1 tab PRN Q4HRS PRN PO PAIN; Start 01/22/19 at 14:30 Morphine Sulfate (Morphine Sulfate) 4 mg PRN Q2HR PRN IV PAIN MOD 1ST CHOICE; Start 01/22/19 at 14:30 Acetaminophen/ Hydrocodone Bitart (Lortab 7.5/325) 2 tab PRN Q4HRS PRN PO PAIN Last administered on 01/25/19at 07:20; Start 01/22/19 at 14:30 Dextrose (Dextrose 50%-Water Syringe) 12.5 gm PRN Q15MIN PRN IV SEE COMMENTS; Start 01/22/19 at 14:30 Dextrose 250 ml PRN Q15MIN PRN IV SEE COMMENTS; Start 01/22/19 at 14:30 Cefazolin Sodium (Ancef) 1 gm Q6H IVP Last administered on 01/23/19at 08:22; Start 01/22/19 at 19:30; Stop 01/23/19 at 07:31; Status DC Fentanyl Citrate (Fentanyl 2ml Vial) 100 mcg STK-MED ONCE .ROUTE ; Start 01/22/19 at 14:44; Stop 01/22/19 at 14:44; Status DC Ondansetron HCl (Zofran) 4 mg PRN Q6HRS PRN IV NAUSEA/VOMITING; Start 01/22/19 at 15:00; Stop 01/23/19 at 14:59; Status DC Fentanyl Citrate (Fentanyl 2ml Vial) 25 mcg PRN Q5MIN PRN IV MILD PAIN 1-3; Start 01/22/19 at 15:00; Stop 01/23/19 at 14:59; Status DC Fentanyl Citrate (Fentanyl 2ml Vial) 50 mcg PRN Q5MIN PRN IV MODERATE TO SEVERE PAIN Last administered on 01/22/19at 15:00; Start 01/22/19 at 15:00; Stop 01/23/19 at 14:59; Status DC Morphine Sulfate (Morphine Sulfate) 1 mg PRN Q10MIN PRN IV SEVERE PAIN 7-10; Start 01/22/19 at 15:00; Stop 01/23/19 at 14:59; Status DC Ringer's Solution 1,000 ml @ 30 mls/hr Q24H IV ; Start 01/22/19 at 14:54; Stop 01/23/19 at 02:53; Status DC Lidocaine HCl (Xylocaine-Mpf 1% 2ml Vial) 2 ml PRN 1X PRN ID PRIOR TO IV START; Start 01/22/19 at 15:00; Stop 01/23/19 at 14:59; Status DC Hydromorphone HCl (Dilaudid) 0.5 mg PRN Q10MIN PRN IV SEV PAIN, Second choice; Start 01/22/19 at 15:00; Stop 01/23/19 at 14:59; Status DC Prochlorperazine Edisylate (Compazine) 5 mg PACU PRN PRN IV NAUSEA, MRX1; Start 01/22/19 at 15:00; Stop 01/23/19 at 14:59; Status DC Zolpidem Tartrate (Ambien) 5 mg PRN QHS PRN PO INSOMNIA; Start 01/23/19 at 09:00 Warfarin Sodium (Coumadin) 5 mg 1X WARF ONCE PO Last administered on 01/23/19at 15:46; Start 01/23/19 at 16:00; Stop 01/23/19 at 16:01; Status DC Warfarin Sodium (Coumadin) 3 mg 1X WARF ONCE PO Last administered on 01/24/19at 15:48; Start 01/24/19 at 16:00; Stop 01/24/19 at 16:01; Status DC Warfarin Sodium (Coumadin) 1 mg 1X WARF ONCE PO ; Start 01/25/19 at 16:00; Stop 01/25/19 at 16:01 Active Scripts Active Warfarin Sodium 2 Mg Tablet 2 Mg PO DAILY Hydrocodone-Apap 7.5-325 (Hydrocodone Bit/Acetaminophen) 1 Tab Tablet 1 Tab PO PRN Q4HRS PRN Propranolol Hcl 10 Mg Tablet 10 Mg PO DAILY Ultram (Tramadol Hcl) 50 Mg Tablet 50 Mg PO Q6H PRN Klonopin (Clonazepam) 1 Mg Tablet 1 Mg PO TID Benzonatate 100 Mg Capsule 100 Mg PO PRN TID PRN Cepacol Sore Throat Lozenge (Benzocaine/Menthol) 1 Each Lozenge 1 Isai PO PRN Q 2HRS PRN Reported Zanaflex (Tizanidine Hcl) 4 Mg Capsule 4 Mg PO TID PRN Carafate (Sucralfate) 1 Gm Tablet 1 Gm PO Protonix (Pantoprazole Sodium) 40 Mg Tablet.dr 40 Mg PO DAILY Remeron (Mirtazapine) 15 Mg Tab.rapdis 15 Mg PO DAILY Levothyroxine Sodium 150 Mcg Tablet 150 Mcg PO DAILYAC Hydroxyzine Hcl 50 Mg Tablet 50 Mg PO TID Cortef (Hydrocortisone) 20 Mg Tablet 20 Mg PO Prozac (Fluoxetine Hcl) 10 Mg Capsule 10 Mg PO DAILY Fludrocortisone Acetate 0.1 Mg Tablet 0.1 Mg PO Ferralet 90 Dual-Iron Tablet (Iron, Carb & Gluc/Fa/B12/C/Dss) 1 Each Tablet Unknown Dose PO Cyanocobalamin Injection (Cyanocobalamin (Vitamin B-12)) 1,000 Mcg/1 Ml Vial 1,000 Mcg IJ Vitals/I & O Vital Sign - Last 24 Hours 01/24/19 01/24/19 01/24/19 01/24/19 15:05 15:08 15:47 16:05 Temp 98.2 98.2 Pulse 56 Resp 18 18 20 20 B/P (MAP) 132/68 (89) Pulse Ox 96 96 O2 Delivery Room Air Room Air Room Air Room Air 01/24/19 01/24/19 01/24/19 01/24/19 16:05 19:00 20:10 20:41 Temp 98.0 98.0 Pulse 67 Resp 20 18 16 B/P (MAP) 125/64 (84) Pulse Ox 96 94 O2 Delivery Room Air Room Air Room Air Room Air 01/24/19 01/24/19 01/25/19 01/25/19 22:00 23:00 02:56 06:15 Temp 98.1 98.0 98.1 98.0 Pulse 54 55 Resp 18 18 18 18 B/P (MAP) 123/66 (85) 136/70 (92) Pulse Ox 96 92 O2 Delivery Room Air Room Air Room Air Room Air 01/25/19 01/25/19 01/25/19 01/25/19 07:00 07:16 07:20 07:20 Temp 97.5 97.5 Pulse 55 Resp 18 B/P (MAP) 114/75 (88) Pulse Ox 94 O2 Delivery Room Air Room Air Room Air Room Air 01/25/19 01/25/19 01/25/19 01/25/19 08:37 08:38 10:13 10:53 Pulse 55 B/P (MAP) 114/75 O2 Delivery Room Air Room Air Room Air 01/25/19 11:00 Temp 97.9 97.9 Pulse 18 Resp 18 B/P (MAP) 149/70 (96) Pulse Ox 95 O2 Delivery Room Air Intake and Output 01/24/19 01/24/19 01/25/19 14:59 22:59 06:59 Intake Total 420 ml 240 ml Balance 420 ml 240 ml Nutrition Consultation Dietary Evaluation: Recommendations by RD: Increase Calorie Intake, Protein supplementation Comments: rec regular diet with ground meats, ensure tid 01/25/2019 Suggest continue the regular diet with ground meats and ensure tid. Encouraged pt. to use menu to get food preferences. Pt. prefernces for lunch called to food preparer. Expected Outcomes/Goals: to meet > 75% est nutr needs Malnutrition Findings: Muscle Mass (Severe): Severe Depletion Body Fat Depletion (Non Severe: Mod to Severe Weight Status: Underweight BORIS AKHTAR MD Jan 25, 2019 12:41
[2019-01-25 15:00] VITALS: BP 142/78
[2019-01-25] MEDS ORDERED: WARFARIN 1 MG TABLET. PO ONE (16:00)
[2019-01-25] MEDS: tiZANidine 4 MG TABLET. PO PRN (18:22)
[2019-01-25 19:00] VITALS: BP 127/57
[2019-01-25] MEDS: FAMOTIDINE 20 MG TABLET. PO SCH (20:15)
[2019-01-25] MEDS: MIRTAZAPINE 15 MG TABLET PO SCH (20:16)
[2019-01-25 23:00] VITALS: BP 156/76
[2019-01-26] MEDS: HYDROcodone/APAP 7.5/325MG 1 TAB TABLET PO PRN ×2 (00:26→08:30)
[2019-01-26 03:00] VITALS: BP 144/84
[2019-01-26] MEDS: HYDROCORTISONE SOD SUCC/PF 100 MG/2 ML VIAL. IV SCH (06:15)
[2019-01-26] MEDS: LEVOTHYROXINE 150 MCG TABLET PO SCH (06:15)
[2019-01-26 07:00] VITALS: BP 162/73
[2019-01-26] MEDS: SENNOSIDES/DOCUSATE 8.6/50MG TABLET. PO SCH (08:29)
[2019-01-26] MEDS: FLUDROCORTISONE 0.1 MG TABLET PO SCH (08:29)
[2019-01-26] MEDS: PHENAZOPYRIDINE 200 MG TABLET. PO SCH (08:29)
[2019-01-26] MEDS: PANTOPRAZOLE 40 MG TABLET.DR. PO SCH (08:29)
[2019-01-26 08:30] VITALS: BP 162/73
[2019-01-26] MEDS: PROPRANOLOL 10 MG TABLET. PO SCH (08:30)
[2019-01-26] MEDS: FLUoxetine HCL 10 MG CAPSULE PO SCH (08:30)
[2019-01-26] MEDS: clonazePAM 0.5 MG TABLET PO SCH (08:30)
[2019-01-26] MEDS: hydrOXYzine 25 MG TABLET PO SCH (09:00)
--- NOTE | 2019-01-26 09:57 | PDOC ---
Provider Note Provider Note She is slated to be picked up 10 AM today. I see and examine her and she tells me about Wili's disease - she tells me unknown dose once in the morning and twice at night? But she is not the very most reliable historian Looking at her home meds we are giving fludrocortisone 0 , 1 mgs in the morning Plan: I have reconciled home meds-need to verify if she actually takes twice the evening dose of fludrocortisone? In the meantime I kept The current dose as a same Med list done, full code, patient seen and examined BORIS AKHTAR MD Jan 26, 2019 09:57
--- NOTE | 2019-01-26 11:46 | NUR ---
Pt transferred to [facility] per [facility] via WC, family at bedside.. L rodolfo zapata in tact. All belongings with pt.
== END 2019-01-26 11:42 | DRG 469 ==
LOC: 4 NORTH 17:01
PROVIDERS: ADMIT Internal Medicine; ATTEND Orthopaedic Surgery
PROC: 0SRR01Z Replacement of Right Hip Joint, Femoral Surface with Metal Synthetic Substitute, Open Approach (ICD-10-PCS; principal; 2019-01-22 11:30)
DX: S72.001A Fracture of unspecified part of neck of right femur, initial encounter for closed fracture (principal); J96.91 Respiratory failure, unspecified with hypoxia; E27.1 Primary adrenocortical insufficiency; K50.90 Crohn's disease, unspecified, without complications; Z68.1 Body mass index [BMI] 19.9 or less, adult; W18.39XA Other fall on same level, initial encounter; R63.6 Underweight; Z90.49 Acquired absence of other specified parts of digestive tract; Z79.899 Other long term (current) drug therapy; Y93.89 Activity, other specified; Y92.89 Other specified places as the place of occurrence of the external cause; Y99.8 Other external cause status; Z88.0 Allergy status to penicillin; Z88.8 Allergy status to other drugs, medicaments and biological substances; Z87.891 Personal history of nicotine dependence
CPT/HCPCS: 36415; 80048; 82306; 85014; 85018; 85610; 87641; 88305; 88311; A7015; C1713; J0171; J0690; J1100; J1720; J2001; J2250; J2270; J2405; J2704; J2710; J3010; J3490; J7030; 97110; 97116; 97530; 97535; G0378

== ENCOUNTER → 2019-07-09 | Outpatient (CLI) | payer MEDICARE, OTHER ==
[~2019-07-09] MED LIST changes: +HYDR-2765 PO; +WARF2TAB96 PO
--- NOTE | 2019-07-09 16:47 | KCIC ---
EXAM: Lumbar spine MRI without contrast. HISTORY: Radiculopathy. TECHNIQUE: Multiplanar, multisequence magnetic resonance imaging of the lumbar spine was performed without contrast. COMPARISON: CT dated 01/15/2019. FINDINGS: There is mild lumbar dextroscoliosis. There is no significant listhesis. There is degenerative endplate remodeling with disc space narrowing and Schmorl's node formation at L2-L3. There is diffusely heterogeneous marrow signal intensity without a focal suspicious osseous lesion. There is no fracture. The conus terminates at L1-L2. At L1-L2, there is no stenosis. At L2-L3, there is a tiny posterior central disc protrusion superimposed on a disc bulge and endplate remodeling. There is minimal left facet arthropathy. There is no stenosis. At L3-L4, there is a minimal disc bulge. There is no stenosis. At L4-L5, there is a minimal disc bulge. There is minimal left facet arthropathy. There is no stenosis. At L5-S1, there is no stenosis. IMPRESSION: 1. Minimal degenerative change involving the and lumbar spine, described in detail above. No significant stenosis is seen. 2. No acute finding. Electronically signed by: Blessing Reyes MD (07/09/2019 4:44 PM) [id number]
== END ==
LOC: KCIC MRI 15:26
PROVIDERS: ATTEND Anesthesiology Pain Medicine
DX: M47.26 Other spondylosis with radiculopathy, lumbar region (principal)
CPT/HCPCS: 72148

== ENCOUNTER → 2019-12-24 | Outpatient (CLI) | payer MEDICARE, OTHER ==
[~2019-12-24] MED LIST changes: +ALBU2.5V8 IH; +ASCO500C PO; +CARB1TAB22 PO; +GABA300C18 PO; +IPRA4AER IH; +OXYC1TAB22 PO; +SUMA100T4 PO; +TIZA4TAB8 PO
== END ==
LOC: LAB 14:21
PROVIDERS: ATTEND Surgery
DX: Z01.812 Encounter for preprocedural laboratory examination (principal); K22.2 Esophageal obstruction; Z20.828 Contact with and (suspected) exposure to other viral communicable diseases
CPT/HCPCS: U0003-CS

== ENCOUNTER → 2019-12-27 | Day surgery (SDC) | payer MEDICARE, OTHER ==
[~2019-12-27] MED LIST changes: +IV NORMAL SALINE 1000ML BAG 1,000 ML IV SCH; +IV RINGERS,LACTATED 1000ML 1,000 ML IV SCH; +PROPOFOL 10 MG/ML (20ML) VIAL. IV ONE
[2019-12-27 13:20] VITALS: BP 120/79
--- NOTE | 2019-12-30 15:07 | PATHOLOGY ---
[facility] Accession Number: [id number] . 01 Material submitted: . stomach - ANTRAL BX FOR H PYLORI . 01 Clinical history: . DYSPHAGIA, SEVERE EROSIVE ESOPHAGITIS, ESOPHAGEAL STRICTURE, R/O H PYLORI . 02 Diagnosis: Gastric biopsy, antrum: - Chronic gastritis, mild. (JPM:[place]; 12/30/2019) S 12/30/2019 1011 Local . 02 Comment: Sections of the gastric antral biopsy show congestion and mild chronic inflammation. A properly controlled immunoperoxidase stain for Helicobacter is negative for Helicobacter organisms. (JPM:[place]; 12/30/2019) . Special stain performed: Immunoperoxidase stain for Helicobacter . 02 Electronically signed: . Vignesh Becerra MD, Pathologist NPI- [id number] . 01 Gross description: . The specimen is received in formalin, labeled "Rosa Maria Love, antral biopsy, R/O H. pylori". Received is a segment of pale [place] soft tissue measuring 0.4 cm in maximum dimensions. The specimen is submitted entirely in cassette A1. ([facility]; 12/27/2019) QAC/QAC 12/27/2019 1629 Local . 02 Pathologist provided ICD-10: K29.50 . 02 CPT . 203331, [id number] Specimen Comment: A courtesy copy of this report has been sent to [phone], [phone] Specimen Comment: [id number] Specimen Comment: Report sent to / DR STRICKLAND Performed at: 01 [facility] [address], [place], [place] [id number] MD Eric Lopez MD Phone: [phone] Performed at: 02 [facility] [address], [place] [id number] MD Vignesh Becerra MD Phone: [phone]
== END | disposition home or self-care (01) ==
LOC: ENDOS 12:19
PROVIDERS: ATTEND Surgery
DX: K22.2 Esophageal obstruction (principal); K21.0 Gastro-esophageal reflux disease with esophagitis; K29.50 Unspecified chronic gastritis without bleeding; Z88.0 Allergy status to penicillin; Z88.8 Allergy status to other drugs, medicaments and biological substances; Z98.890 Other specified postprocedural states; Z79.899 Other long term (current) drug therapy; Z87.891 Personal history of nicotine dependence; Z83.3 Family history of diabetes mellitus; Z82.49 Family history of ischemic heart disease and other diseases of the circulatory system
CPT/HCPCS: 43239; 88305; 88342; J2704